=== PATIENT | male | born 2000 | race Two or more races ===

== ENCOUNTER 2024-03-01 07:45 | Observation (INO) | payer OTHER, SELFPAY ==
[2024-03-01] VITALS (19 sets, daily range): BP systolic 98–141; BP diastolic 57–97; PULSE 52–79; TEMP 36.2–36.9; O2SAT 95–99; BMI 33.2; BMI 76.5
--- NOTE | 2024-03-01 | CONS_ITS ---
CONSULTATION ? CONSULTATION DATE: ??03/01/2024 ? REASON FOR CONSULTATION:? Abdominal pain, cholelithiasis. ? HISTORY OF PRESENT ILLNESS:? Patient is a 24-year-old male with a history of bipolar disorder, which she is no longer taking medications, who presented to the emergency room with upper abdominal pain, nausea and vomiting that began about 4:30 this morning.? He does have a one year history of intermittent symptoms, usually very short lived, but occasionally.? The longest episode had been several hours, sometimes triggered by acidic/spicy foods or fatty foods.? He did have several episodes of nausea and vomiting, did try to take Tums with no relief.? By the time he presented to the emergency room and was being worked up, his pain was improving.? He was also given pain medications.? Workup in the emergency room revealed normal laboratory evaluation.? CT scan revealed a stone in the neck of the gallbladder without distention of the gallbladder.? There was some enhancement of the wall of the gallbladder.? No pericholecystic fluid or inflammatory changes.? No other abnormalities noted.? It was read as possible early cholecystitis; therefore, he was admitted for further workup and antibiotics.? He did have an ultrasound done of the right upper quadrant which revealed the same stone.? No gallbladder wall thickening.? No positive Garduno?s sign with ultrasound.? No evidence of free fluid or distention of the gallbladder.? Normal size common bile duct.? Patient has been pain free since his admission and was taking some full liquid diet without problems.? He has had no further nausea, vomiting.? Patient denies any previous abdominal surgery.? No history of jaundice or pancreatitis.? There is no family history of GI malignancy or inflammatory bowel disease.? He denies aspirin, nonsteroidal anti- inflammatory drug use.? Does report occasional alcohol use.? He does vape nicotine containing products and does use some cannabis products.? Patient has no other medical problems, is on no prescription medications.? Has no allergies to any drugs or [id number]-cvh-reipvad medications.? ? SOCIAL HISTORY:? As noted in the HPI.? He does work at [employer].? ? FAMILY HISTORY:? Noncontributory. ? REVIEW OF SYSTEMS:? Ten system review of systems is negative for recent weight loss or weight gain.? Denies increased fatigue or light-headedness.? Has had no earache or tinnitus.? No sinus congestion.? No sore throat or hoarseness.? No chest pain, palpitations or syncope.? No chronic cough, shortness of breath or hemoptysis.? He has had the abdominal pain and the nausea, vomiting, some loose stools.? No melena, hematochezia or bright red blood per rectum.? No dysuria, frequency, urgency or hematuria.? No headaches, seizures or tremors.? No easy bruising or bleeding. ?No heat or cold intolerance.? No polydipsia, polyphagia or polyuria. ? PHYSICAL EXAM:? VITAL SIGNS:? Patient is afebrile.? Blood pressure is 118/83.? Heart rate is 70 and regular.? Respiratory rate is 18.? O2 saturation is 98% on room air.? GENERAL:? In general, he is a well developed, well nourished male, in no acute distress. HEENT:? Normocephalic, atraumatic.? Sclerae anicteric.? Conjunctiva not injected.? Oral mucosa is moist without lesions. NECK:? Supple.? There is no adenopathy, thyromegaly or JVD. LUNGS:? Clear bilaterally.? CARDIAC EXAM:? Regular rhythm and rate without appreciable murmurs, rubs or gallops. ABDOMEN:? Obese, soft.? There are normal bowel sounds.? Non-tender, non- distended.? There are no masses, hepatosplenomegaly or hernias.? No right upper quadrant or epigastric tenderness to deep palpation.? No CVA tenderness. SKIN:? Warm and dry without lesions, rashes or ulcers. NEURO EXAM:? Non-focal.? Non-lateralizing.? Patient is awake, alert, oriented with appropriate affect. ? IMAGING:? CT scan and ultrasound images were personally reviewed. ? ASSESSMENT:? A 24-year-old male with one year history of intermittent biliary colic, now with a likely episode of biliary colic that has resolved.? There is no evidence of cholecystitis.? His pain has resolved.? He has normal vital signs.? No evidence of abnormal laboratory evaluation.? No further nausea, vomiting. ? RECOMMENDATIONS:? Overall, I would advance him to a low fat diet.? He can be discharged and follow up as an outpatient to be set up for elective cholecystectomy.? I would recommend he continue the low fat diet to minimize episodes.? He is to call sooner with any problems or questions.? ? CC:? Dr. Rigoberto CHRIS
--- NOTE | 2024-03-01 08:04 | CT_ITS ---
[address] [address] Patient Name: LIANE MAHONEY MRN: [id number] date: 2000 Sex: M Assigned Patient Location: ER Current Patient Location: Accession/Order Number: [id number] Exam Date: 03/01/2024 08:40 Report Date: 03/01/2024 09:24 At the request of: TOMMY DOSS Procedure: CT abdomen pelvis w con EXAMINATION: CT abdomen pelvis w con HISTORY: RUQ Pain , nausea, vomiting, diarrhea COMPARISON: No relevant comparison available. TECHNIQUE: Axial, Coronal, and Sagittal images were obtained without and/or with IV contrast as indicated by examination type. Dose reduction techniques were achieved by using automated exposure control and/or adjustment of mA and/or kV according to patient size and/or use of iterative reconstruction technique. FINDINGS: LUNG BASES: No visible pulmonary or pleural disease. LIVER: No enlargement, atrophy, suspicious density, or significant focal lesion. BILIARY: 1.5 cm stone within gallbladder neck. Gallbladder wall thickness is at upper limits of normal, 3 mm. PANCREAS: No lesion, fluid collection, or abnormal duct dilatation. SPLEEN: No enlargement or focal lesion. ADRENALS: No mass or enlargement. KIDNEYS: No mass, obstruction, or calcification. BOWEL/MESENTERY: No visible mass, obstruction, or bowel wall thickening. Normal appendix. AORTA/VASCULAR: No aneurysm or dissection. RETROPERITONEUM: No mass or adenopathy. LYMPH NODES: No adenopathy. URINARY BLADDER: No visible focal wall thickening, lesion, or calculus. PELVIC ORGANS: No visible mass. Pelvic organs appropriate for patient age. ABDOMINAL WALL: No mass or hernia. BONES: No bony lesion or fracture. OTHER: Negative. CT/CT abdomen pelvis w con IMPRESSION: 1. Cholelithiasis and likely early / developing acute cholecystitis. Consider ultrasound evaluation. Electronically authenticated by: ROBINSON COLLINS Date: 03/01/2024 09:24
--- NOTE | 2024-03-01 08:18 | ECG_ITS ---
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
--- NOTE | 2024-03-01 08:19 | ED.ABDPAIN1 ---
HPI - Abdominal Pain General Chief Complaint: Abdominal Pain Stated Complaint: ABDOMINAL PAIN, NAUSEA, VOMITING Time Seen by Provider: 03/01/24 07:50 Source: patient Mode of arrival: walk-in History of Present Illness HPI narrative: 24-year-old male to the emergency department with chief complaint of upper abdominal pain. Patient reports an episode that began at 4:30 AM. It was a sharp cramping-like pain. He reports that lying in the position is the only thing it helps. It has been consistent since that time. Is been associate with nausea and vomiting. He reports that he had a diarrhea-like bowel movement this morning as well. No blood in the stool. He had a similar episode approximately 1 month ago. It resolved spontaneously after a few hours and he felt much improved. Related Data Home Medications ?Medication ?Instructions ?Recorded ?Confirmed No Known Home Medications 03/01/24 03/01/24 Allergies Allergy/AdvReac Type Severity Reaction Status Date / Time No Known Drug Allergies Allergy Verified 03/01/24 07:52 Review of Systems ROS Status of ROS 10 or more systems reviewed and unremarkable except as noted in history and below Exam Narrative Exam Narrative: VITALS: I have reviewed the triage vital signs. GENERAL: Well developed, well appearing adult in mild discomfort, holding upper abdomen. Girlfriend at the bedside. NEURO: Alert and oriented. Moves all extremities. Face is symmetric and expressive. EYES: PERRL. No scleral icterus or conjunctival injection. No discharge. HENT: Normocephalic, atraumatic. Hearing is grossly intact. Nares grossly patent and without discharge. Mucous membranes moist. NECK: No JVD. Patient moves neck without restriction. CARDIO: Rhythm regular. Normal rate. No murmur, rub, or gallop. Pulses equal bilaterally in the upper and lower extremity. No lower extremity edema. PULM: Lungs clear to auscultation in all mazariegos. No wheezes, rales, or rhonchi. No conversational dyspnea. No splinting, stridor, or accessory muscle use. GI/: Abdomen is soft. Right upper quadrant tenderness. No rebound or guarding. Normoactive bowel sounds. EXTREMITIES: Symmetric muscle bulk. No joint swelling. No clubbing, cyanosis, or deformity. SKIN: Warm and dry. Normal turgor. No rash or lesions appreciated. PSYCH: Mood, affect, and interaction is appropriate to the setting. Constitutional Vital Signs, click to edit/add: Last Vital Signs Temp 98.0 F 03/01/24 07:48 Pulse 78 03/01/24 07:48 Resp 18 03/01/24 07:48 BP 141/97 H 03/01/24 07:48 Pulse Ox 95 03/01/24 07:48 O2 Del Method Room Air 03/01/24 07:48 Course Vital Signs Vital signs: Vital Signs Temperature 98.0 F 03/01/24 07:48 Pulse Rate 78 03/01/24 07:48 Respiratory Rate 18 03/01/24 07:48 Blood Pressure 141/97 H 03/01/24 07:48 Pulse Oximetry 95 03/01/24 07:48 Oxygen Delivery Method Room Air 03/01/24 07:48 Temperature 98.0 F 03/01/24 07:48 Pulse Rate 78 03/01/24 07:48 Respiratory Rate 18 03/01/24 07:48 Blood Pressure 141/97 H 03/01/24 07:48 Pulse Oximetry 95 03/01/24 07:48 Oxygen Delivery Method Room Air 03/01/24 07:48 MDM - Abdominal Pain MDM Narrative Medical decision making narrative: 24-year-old male to the emergency department with chief complaint of upper abdominal pain. Vital stable, the patient is afebrile. He does have some mild tenderness about the right upper quadrant. CT scan is ordered for evaluation of the biliary system. Lab work ordered. Bentyl, Toradol, Zofran for symptom control. Patient agrees with this plan. Lab work reviewed and noted. No major abnormalities. Specifically has normal LFTs and lipase. No leukocytosis. He is afebrile. CT scan shows possible early acute cholecystitis. He does have cholelithiasis. Case was discussed with the on-call surgeon Dr. Luu. He agrees to consultation for the patient in the hospital. Asked to cover with antibiotics. Zosyn was ordered. Discussed the case with Dr. Franklin who agrees admit the patient to his service. Patient was updated. He is made NPO. Medical Records Attestation: I reviewed the patient's medical records. Lab Data Attestation: I reviewed the patient's lab results. Labs: Lab Results 03/01/24 Range/Units 08:22 WBC 8.8 (4.0-11.0) 10^3/uL RBC 4.71 (4.70-6.10) 10^6/uL Hgb 15.1 (14.0-18.0) g/dL Hct 42.3 (42.0-54.0) % MCV 89.8 (80.0-94.0) fL MCH 32.1 (25.9-34.0) pg MCHC 35.7 H (29.9-35.2) g/dL RDW 12.6 (11.0-15.0) % Plt Count 260 (150-450) 10^3/uL MPV 9.1 L (9.5-13.5) fL Neut % (Auto) 66.4 (43.0-75.0) % Lymph % (Auto) 25.1 (20.5-60.0) % [place] % (Auto) 6.9 (1.7-12.0) % Eos % (Auto) 1.0 (0.9-7.0) % Baso % (Auto) 0.3 (0.2-2.0) % Neut # (Auto) 5.9 (1.4-6.5) 10^3/uL Lymph # (Auto) 2.2 (1.2-3.8) 10^3/uL [place] # (Auto) 0.6 (0.3-0.8) 10^3/uL Eos # (Auto) 0.1 (0.0-0.7) 10^3/uL Baso # (Auto) 0.0 (0.0-0.1) 10^3/uL Abs Immat Gran (auto) 0.03 (0.00-0.03) 10^3/uL Imm/Tot Granulo (auto) 0.3 (0.0-0.5) % Sodium 139 (136-145) mmol/L Potassium 3.9 (3.5-5.1) mmol/L Chloride 102 (98-107) mmol/L Carbon Dioxide 29.4 (21.0-32.0) mmol/L Anion Gap 11.5 BUN 10.0 (7.0-18.0) mg/dL Creatinine 0.84 (0.70-1.30) mg/dL Est GFR ( Amer) >60 (>=60) Est GFR (Non-Af Amer) >60 (>=60) BUN/Creatinine Ratio 11.9 Glucose 107 H (74-106) mg/dL Calcium 8.4 L (8.5-10.1) mg/dL Total Bilirubin 0.6 (0.2-1.0) mg/dL AST 22 (15-37) U/L ALT 53 (16-63) U/L Alkaline Phosphatase 92 (46-116) U/L Troponin I High Sens <4.0 L (4.0-76.1) pg/mL Total Protein 6.9 (6.4-8.2) g/dL Albumin 3.9 (3.4-5.0) g/dL Globulin 3.0 g/dL Albumin/Globulin Ratio 1.3 Lipase 36.0 (16.0-77.0) U/L Imaging Data CT scan - abdomen: Radiologist's impression: ITS Impressions Abdomen/Pelvis CT 03/01/24 08:04 IMPRESSION: 1. Cholelithiasis and likely early / developing acute cholecystitis. Consider ultrasound evaluation. Electronically authenticated by: ROBINSON COLLINS Date: 03/01/2024 09:24 ECG Data Attestation: I personally reviewed and interpreted this ECG as follows: (Sinus rhythm at a rate of 70. No ST elevation. Normal QTc.) Discharge Plan Discharge Stand Alone Forms: Portal Instructions Chief Complaint: Abdominal Pain Clinical Impression: Acute cholecystitis, Cholelithiasis Patient Disposition: Admitted as Observation Time of Disposition Decision: 09:46 Condition: Good Prescriptions / Home Meds: No Action No Known Home Medications Print Language: Yoruba Referrals: Physician,Non-Staff, MD [Primary Care Provider] - 1 week
[2024-03-01] MEDS: DICYCLOMINE HCL 20 MG/2 ML VIAL IM (08:22)
[2024-03-01] MEDS: ONDANSETRON PF 4 MG/2 ML VIAL IV (08:22)
[2024-03-01] MEDS: 0.9 % SODIUM CHLORIDE 1,000 ML 999 ML IV (08:23)
[2024-03-01] MEDS: KETOROLAC TROMETHAMINE 30 MG/ML VIAL 15 MG IVP (08:23)
[2024-03-01 08:35] LABS: Basophils Percent Auto 0.3 % (0.2-2.0); Eosinophils Absolute Auto 0.1 10^3/uL (0.0-0.7); Hematocrit 42.3 % (42.0-54.0); Hemoglobin 15.1 g/dL (14.0-18.0); Immature Granulocytes Abs Auto 0.03 10^3/uL (0.00-0.03); Immature Granulocytes Pct Auto 0.3 % (0.0-0.5); Lymphocytes Absolute Auto 2.2 10^3/uL (1.2-3.8); Lymphocytes Percent Auto 25.1 % (20.5-60.0); Mean Corpuscular HGB Conc 35.7 g/dL (29.9-35.2); Mean Corpuscular Hemoglobin 32.1 pg (25.9-34.0); Mean Corpuscular Volume 89.8 fL (80.0-94.0); Mean Platelet Volume 9.1 fL (9.5-13.5); Monocytes Absolute Auto 0.6 10^3/uL (0.3-0.8); Monocytes Percent Auto 6.9 % (1.7-12.0); Neutrophils Absolute Auto 5.9 10^3/uL (1.4-6.5); Neutrophils Percent Auto 66.4 % (43.0-75.0); Platelet Count 260 10^3/uL (150-450); Red Blood Count 4.71 10^6/uL (4.70-6.10); Red Cell Distribution Width 12.6 % (11.0-15.0); White Blood Count 8.8 10^3/uL (4.0-11.0)
[2024-03-01 08:51] LABS: Alanine Aminotransferase 53 U/L (16-63); Albumin Globulin Ratio 1.3; Albumin Level 3.9 g/dL (3.4-5.0); Alkaline Phosphatase 92 U/L (46-116); Anion Gap 11.5; Aspartate Amino Transferase 22 U/L (15-37); BUN Creatinine Ratio 11.9; Bilirubin Total 0.6 mg/dL (0.2-1.0); Calcium 8.4 mg/dL (8.5-10.1); Carbon Dioxide 29.4 mmol/L (21.0-32.0); Chloride 102 mmol/L (98-107); Estimated GFR (African America >60 (>=60); Estimated GFR (Non-African Ame >60 (>=60); Glucose 107 mg/dL (74-106); Potassium 3.9 mmol/L (3.5-5.1); Sodium 139 mmol/L (136-145); Total Protein 6.9 g/dL (6.4-8.2); Troponin I High Sensitivity <4.0 pg/mL (4.0-76.1)
--- NOTE | 2024-03-01 09:42 | US_ITS ---
The [address] [address] Patient Name: LIANE MAHNOEY MRN: [id number] date: 2000 Sex: M Assigned Patient Location: Current Patient Location: Accession/Order Number: [id number] Exam Date: 03/01/2024 11:15 Report Date: 03/01/2024 11:54 At the request of: SHAIKH MARLENY Procedure: US right upper quadrant EXAMINATION: US right upper quadrant HISTORY: cholecystitis COMPARISON: No relevant comparison available. TECHNIQUE: Transabdominal evaluation of the right upper quadrant. FINDINGS: LIVER: Normal size and echotexture. Color Doppler demonstrates patent hepatic veins. PORTAL VEIN: Duplex Doppler demonstrates normal hepatopetal flow pattern with flow velocity averaging 27 cm/s. GALLBLADDER: 12 mm stone within the neck of gallbladder. Wall thickness is upper limits of normal, 3 mm. No free fluid. Negative sonographic Garduno's sign. BILIARY: No abnormal duct dilation or stones. Common bile duct diameter is within normal limits. PANCREAS: No visible mass, abnormal atrophy, or duct dilation. KIDNEY: No hydronephrosis. No visible mass or stones. Size: 11.0 x 5.1 x 5.8 cm US/US right upper quadrant IMPRESSION: 1. Cholelithiasis. There is a 12 mm stone within the neck of the gallbladder, unchanged compared to CT study from earlier today suggesting this may be impacted. However, no convincing acute cholecystitis. Electronically authenticated by: ROBINSON COLLINS Date: 03/01/2024 11:54
[2024-03-01] MEDS: PIPERACILLIN SODIUM/TAZOBACTAM 4.5 GM in 0.9 % SODIUM CHLORIDE 50 ML IV (09:48)
--- NOTE | 2024-03-01 10:33 | P.HP_ITS ---
HPI H&P: HPI History of Present Illness Chief complaint: ABDOMINAL PAIN, NAUSEA, ACUTE CHOLECYSTITIS Narrative: 24-year-old male with past medical history of bipolar disorder presents with acute onset epigastric and right upper quadrant abdominal pain that is persistent, sharp associated with nausea and few episodes of vomiting. He came to ED when his pain continued to get progressively worse with no relief and initial workup shows possible acute early cholecystitis for which he was admitted for observation and started on IV fluids, IV antibiotics. General surgery consulted further recommendation. In the meanwhile, I ordered an ultrasound of right upper quadrant for better visualization of hepatobiliary anatomy. Patient reports that over the past 1 year he would experience intermittent right upper quadrant abdominal pain usually precipitated by eating fatty foods but his pain would subside after a few hours and that he did not have to seek medical attention for that. He was also without health insurance until 1 month ago and could not see anyone for an evaluation Opioid HPI Opioid Management Most Recent Pain and Opioid Data: Last SEP Pain Assessment 03/01/24 08:23 Last ORT Total Score 5 03/01/24 10:22 Last ORT Risk Category Moderate Risk 03/01/24 10:22 Review of Systems ROS Status of ROS 10 or more systems reviewed and unremark able except as noted in history and below PFSH PFS Medical History (Updated 03/01/24 @ 10:36 by Shaikh Rigoberto MD) Bipolar disorder in full remission ?F31.70 - Bipolar disorder, currently in remission, most recent episode unspecified (ICD-10) Social History (Updated 03/01/24 @ 10:36 by Shaikh Rigoberto MD) Within the past year, how often did you have a drink containing alcohol: never Within the past year, how many standard drinks containing alcohol did you have on a typical day: 1 or 2 Within the past year, how often did you have six or more drinks on one occasion: never Total score: 0 Score interpretation: A score less than 4 is consistent with normal alcohol consumption. Do you use any of these nicotine containing products: vaping products Non-prescribed substance use: cannabis (any form) Highest level of school completed/degree received: high school graduate Meds Home Medications and Allergies Home Medications ?Medication ?Instructions ?Recorded ?Confirmed ?Type No Known Home Medications 03/01/24 03/01/24 History Allergies Allergy/AdvReac Type Severity Reaction Status Date / Time No Known Drug Allergies Allergy Verified 03/01/24 07:52 Exam Constitutional Vital Signs, click to edit/add: Last Vital Signs Temp 98.5 F 03/01/24 10:28 Pulse 56 L 03/01/24 10:28 Resp 16 03/01/24 10:28 BP 120/73 03/01/24 10:28 Pulse Ox 97 03/01/24 10:28 O2 Del Method Room Air 03/01/24 10:28 Documenting provider has reviewed patient's vital signs: yes Common normals: no apparent distress and oriented x3 General appearance: cooperative HENID Common normals: normocephalic and head/scalp atraumatic Head and scalp: normocephalic and atraumatic Eye Common normals: conjunctivae normal and no scleral icterus Conjunctiva: conjunctiva(e) normal Respiratory Common normals: normal respiratory effort and clear to auscultation bilaterally Effort & inspection: able to speak in complete sentences Auscultation: clear to auscultation bilaterally Cardio Common normals: regular rate, S1 normal heart sound and S2 normal heart sound Rate: regular rate Heart sounds: S1 normal and S2 normal GI Common normals: Normal to inspection, nondistended, normoactive bowel sounds present, soft to palpation, non-tender and no hepatosplenomegaly Palpation: soft and no hepatosplenomegaly Extremity Common normals: no clubbing, cyanosis or edema Neuro Common normals: oriented x3, moves all extremities and no focal motor deficits Psych Common normals: mental status grossly normal, denies hallucinations, denies homicidal ideation and denies suicidal ideation Results Labs Labs: Short CBC 03/01/24 Range/Units 08:22 WBC 8.8 (4.0-11.0) 10^3/uL Hgb 15.1 (14.0-18.0) g/dL Hct 42.3 (42.0-54.0) % Plt Count 260 (150-450) 10^3/uL BMP 03/01/24 08:22 Sodium 139 Potassium 3.9 Chloride 102 Carbon Dioxide 29.4 BUN 10.0 Creatinine 0.84 Glucose 107 H Calcium 8.4 L Liver Function 03/01/24 Range/Units 08:22 Total Bilirubin 0.6 (0.2-1.0) mg/dL AST 22 (15-37) U/L ALT 53 (16-63) U/L Alkaline Phosphatase 92 (46-116) U/L Albumin 3.9 (3.4-5.0) g/dL Assessment and Plan Assessment and Plan (1) Acute cholecystitis: Assessment and Plan: Patient presents with epigastric and right upper quadrant abdominal pain with nausea, vomiting. CT abdomen pelvis showed early cholecystitis. Ultrasound of right upper quadrant ordered. General surgery consult pending. Continue with IV Zosyn. Continue with IV fluids, antiemetics. Combination of oxycodone and IV morphine for pain as needed (2) Bipolar disorder in full remission: Assessment and Plan: Previously was on Abilify and trazodone. Patient has not been using his medication for over a month now. His mood is stable and does not feel that he needs anything currently. Will defer to outpatient. Qualifiers: Most recent bipolar episode type: mixed Qualified Code(s): F31.78 - Bipolar disorder, in full remission, most recent episode mixed
[2024-03-01] MEDS: LACTATED RINGER'S SOLUTION 1,000 ML 125 ML IV ×2 (10:50→21:49)
[2024-03-01] MEDS: ENOXAPARIN SODIUM 40 MG/0.4 ML SYRINGE SUBQ (10:50)
[2024-03-01] MEDS: PIPERACILLIN SODIUM/TAZOBACTAM 3.375 GM in 0.9 % SODIUM CHLORIDE 50 ML IV (17:34)
--- NOTE | 2024-03-01 18:00 | PM.GSCN ---
History of Present Illness Consult details Consult date: 03/01/24 Requesting physician: Shaikh Rigoberto Narrative: patient seen/examined/chart and ct/US images reviewed/consult dictated; 24 yo male with 1 year h/o likely biliary colic, now with more prolonged episode that has resolved; normal labs and vitals, tolerating full liquid diet, imaging with no evidence of gallbladder distension or inflammation; advance to low fat diet; can discharge to home, with f/u with me to schedule elective cholecystectomy; should stay on low fat diet; no need for further antibiotics. [facility] Medical History (Updated 03/01/24 @ 10:36 by Shaikh Rigoberto MD) Bipolar disorder in full remission ?F31.70 - Bipolar disorder, currently in remission, most recent episode unspecified (ICD-10) Social History (Updated 03/01/24 @ 10:36 by Shaikh Rigoberto MD) Within the past year, how often did you have a drink containing alcohol: never Within the past year, how many standard drinks containing alcohol did you have on a typical day: 1 or 2 Within the past year, how often did you have six or more drinks on one occasion: never Total score: 0 Score interpretation: A score less than 4 is consistent with normal alcohol consumption. Do you use any of these nicotine containing products: vaping products Non-prescribed substance use: cannabis (any form) Highest level of school completed/degree received: high school graduate Meds Home Medications and Allergies Home Medications ?Medication ?Instructions ?Recorded ?Confirmed ?Type No Known Home Medications 03/01/24 03/01/24 History Allergies Allergy/AdvReac Type Severity Reaction Status Date / Time No Known Drug Allergies Allergy Verified 03/01/24 07:52 Exam Constitutional Vital Signs, click to edit/add: Last Vital Signs Temp 98.4 F 03/01/24 15:45 Pulse 70 03/01/24 15:45 Resp 14 03/01/24 15:45 BP 118/83 03/01/24 15:45 Pulse Ox 98 03/01/24 15:45 O2 Del Method Room Air 03/01/24 15:45 Results Labs Labs: Abnormal lab results 03/01/24 Range/Units 08:22 MCHC 35.7 H (29.9-35.2) g/dL MPV 9.1 L (9.5-13.5) fL Glucose 107 H (74-106) mg/dL Calcium 8.4 L (8.5-10.1) mg/dL Troponin I High Sens <4.0 L (4.0-76.1) pg/mL Diabetes panel 03/01/24 Range/Units 08:22 Sodium 139 (136-145) mmol/L Potassium 3.9 (3.5-5.1) mmol/L Chloride 102 (98-107) mmol/L Carbon Dioxide 29.4 (21.0-32.0) mmol/L BUN 10.0 (7.0-18.0) mg/dL Creatinine 0.84 (0.70-1.30) mg/dL Glucose 107 H (74-106) mg/dL Calcium 8.4 L (8.5-10.1) mg/dL AST 22 (15-37) U/L ALT 53 (16-63) U/L Alkaline Phosphatase 92 (46-116) U/L Total Protein 6.9 (6.4-8.2) g/dL Albumin 3.9 (3.4-5.0) g/dL Calcium panel 03/01/24 Range/Units 08:22 Calcium 8.4 L (8.5-10.1) mg/dL Albumin 3.9 (3.4-5.0) g/dL Pituitary panel 03/01/24 Range/Units 08:22 Sodium 139 (136-145) mmol/L Potassium 3.9 (3.5-5.1) mmol/L Chloride 102 (98-107) mmol/L Carbon Dioxide 29.4 (21.0-32.0) mmol/L BUN 10.0 (7.0-18.0) mg/dL Creatinine 0.84 (0.70-1.30) mg/dL Glucose 107 H (74-106) mg/dL Calcium 8.4 L (8.5-10.1) mg/dL Adrenal panel 03/01/24 Range/Units 08:22 Sodium 139 (136-145) mmol/L Potassium 3.9 (3.5-5.1) mmol/L Chloride 102 (98-107) mmol/L Carbon Dioxide 29.4 (21.0-32.0) mmol/L BUN 10.0 (7.0-18.0) mg/dL Creatinine 0.84 (0.70-1.30) mg/dL Glucose 107 H (74-106) mg/dL Calcium 8.4 L (8.5-10.1) mg/dL Total Bilirubin 0.6 (0.2-1.0) mg/dL AST 22 (15-37) U/L ALT 53 (16-63) U/L Alkaline Phosphatase 92 (46-116) U/L Total Protein 6.9 (6.4-8.2) g/dL Albumin 3.9 (3.4-5.0) g/dL All other labs normal. Assessment and Plan Assessment and Plan (1) Acute cholecystitis: (2) Bipolar disorder in full remission: Qualifiers: Most recent bipolar episode type: mixed Qualified Code(s): F31.78 - Bipolar disorder, in full remission, most recent episode mixed
[2024-03-02] MEDS: PIPERACILLIN SODIUM/TAZOBACTAM 3.375 GM in 0.9 % SODIUM CHLORIDE 50 ML IV (01:54)
[2024-03-02 04:51] VITALS: O2SAT 97
[2024-03-02 05:01] VITALS: BP 122/76; PULSE 55; TEMP 36.4; O2SAT 97
[2024-03-02 06:36] LABS: Basophils Percent Auto 0.3 % (0.2-2.0); Eosinophils Absolute Auto 0.1 10^3/uL (0.0-0.7); Eosinophils Percent Auto 1.7 % (0.9-7.0); Hematocrit 42.9 % (42.0-54.0); Hemoglobin 15.3 g/dL (14.0-18.0); Immature Granulocytes Abs Auto 0.02 10^3/uL (0.00-0.03); Immature Granulocytes Pct Auto 0.3 % (0.0-0.5); Lymphocytes Absolute Auto 2.8 10^3/uL (1.2-3.8); Lymphocytes Percent Auto 39.3 % (20.5-60.0); Mean Corpuscular HGB Conc 35.7 g/dL (29.9-35.2); Mean Corpuscular Volume 89.7 fL (80.0-94.0); Mean Platelet Volume 9.5 fL (9.5-13.5); Monocytes Absolute Auto 0.6 10^3/uL (0.3-0.8); Monocytes Percent Auto 7.9 % (1.7-12.0); Neutrophils Absolute Auto 3.6 10^3/uL (1.4-6.5); Neutrophils Percent Auto 50.5 % (43.0-75.0); Platelet Count 249 10^3/uL (150-450); Red Blood Count 4.78 10^6/uL (4.70-6.10); Red Cell Distribution Width 12.6 % (11.0-15.0); White Blood Count 7.1 10^3/uL (4.0-11.0)
[2024-03-02 07:01] LABS: Alanine Aminotransferase 52 U/L (16-63); Albumin Globulin Ratio 1.3; Alkaline Phosphatase 80 U/L (46-116); Anion Gap 15.7; Aspartate Amino Transferase 27 U/L (15-37); BUN Creatinine Ratio 6.3; Bilirubin Total 1.1 mg/dL (0.2-1.0); Calcium 8.8 mg/dL (8.5-10.1); Carbon Dioxide 23.9 mmol/L (21.0-32.0); Chloride 104 mmol/L (98-107); Estimated GFR (African America >60 (>=60); Estimated GFR (Non-African Ame >60 (>=60); Globulin 3.1 g/dL; Glucose 99 mg/dL (74-106); Potassium 3.6 mmol/L (3.5-5.1); Sodium 140 mmol/L (136-145); Total Protein 7.1 g/dL (6.4-8.2)
[2024-03-02 08:03] VITALS: BP 124/82; PULSE 64; TEMP 36.7; O2SAT 98
[2024-03-02] MEDS: ACETAMINOPHEN 325 MG TABLET 650 MG PO (09:05)
[2024-03-02] MEDS: ENOXAPARIN SODIUM 40 MG/0.4 ML SYRINGE SUBQ (09:06)
--- NOTE | 2024-03-02 10:09 | PM.DS1 ---
DS: Providers Provider Date of admission: 03/01/24 10:10 Primary care physician: Non-Staff Physician, Admitting clinician: Shaikh Rigoberto Attending physician on admission: Shaikh Rigoberto Consults: 03/01/24 09:42 Consult to General Surgeon Routine Consulting Provider: Bryant Luu Reason for consultation: cholecystitis Attending physician on discharge: Shaikh Rigoberto Discharging clinician: Shaikh Rigoberto Anticipated date of discharge: 03/02/24 DS: Diagnosis Discharge Diagnosis (1) Acute cholecystitis: Assessment and plan: Cholecystitis ruled out by abdominal ultrasound. No need to be on antibiotics. (2) Cholelithiasis: Assessment and plan: Cholecystitis ruled out by abdominal ultrasound. No need to be on antibiotics. Pain is well-controlled. Tolerating oral diet. Patient had biliary colic due to cholelithiasis and will need outpatient follow-up with general surgery for aron Qualifiers: Cholelithiasis location: bile duct Cholecystitis presence: without cholecystitis Biliary obstruction: without biliary obstruction Qualified Code(s): K80.50 - Calculus of bile duct without cholangitis or cholecystitis without obstruction (3) Bipolar disorder in full remission: Assessment and plan: Not using any medications currently. Will need outpatient follow-up with PCP Qualifiers: Most recent bipolar episode type: mixed Qualified Code(s): F31.78 - Bipolar disorder, in full remission, most recent episode mixed DS: Summary Hospital Course Hospital Course: 24-year-old male admitted for nausea, vomiting, epigastric and right upper quadrant abdominal pain. Initial workup was concerning for biliary colic/cholelithiasis with possible early cholecystitis. He was started on IV fluids, IV antibiotics for possible acute cholecystitis. Ultrasound of liver and gallbladder rule out acute cholecystitis. Patient was seen by general surgery and was recommended to have outpatient laparoscopic cholecystectomy. Patient is doing well. He has minimal pain. He is tolerating oral diet. Will discharge on oral Zofran as needed. Follow-up with general surgery as outpatient in 1 to 2 weeks Status at Discharge Functional status at discharge: independent ambulation Overall status at discharge: patient is back to baseline Time Spent with Patient Time attestation: Total time spent providing and/or coordinating discharge services: Exam Constitutional Vital Signs, click to edit/add: Last Vital Signs Temp 98.0 F 03/02/24 08:03 Pulse 64 03/02/24 08:03 Resp 16 03/02/24 08:04 BP 124/82 03/02/24 08:03 Pulse Ox 98 03/02/24 08:03 O2 Del Method Room Air 03/02/24 08:03 Documenting provider has reviewed patient's vital signs: yes Common normals: no apparent distress and oriented x3 General appearance: cooperative Respiratory Common normals: normal respiratory effort and clear to auscultation bilaterally Effort & inspection: able to speak in complete sentences Auscultation: clear to auscultation bilaterally Cardio Common normals: regular rate, S1 normal heart sound and S2 normal heart sound Rate: regular rate Heart sounds: S1 normal and S2 normal GI Common normals: Normal to inspection, nondistended, normoactive bowel sounds present, soft to palpation, non-tender and no hepatosplenomegaly Palpation: soft and no hepatosplenomegaly Extremity Common normals: no clubbing, cyanosis or edema Neuro Common normals: oriented x3, moves all extremities and no focal motor deficits Psych Common normals: mental status grossly normal, denies hallucinations, denies homicidal ideation and denies suicidal ideation DS: Data Data Completed and Pending Labs on day of discharge: Labs from last 24 hours 03/02/24 05:21 WBC 7.1 RBC 4.78 Hgb 15.3 Hct 42.9 MCV 89.7 MCH 32.0 MCHC 35.7 H RDW 12.6 Plt Count 249 MPV 9.5 Neut % (Auto) 50.5 Lymph % (Auto) 39.3 [place] % (Auto) 7.9 Eos % (Auto) 1.7 Baso % (Auto) 0.3 Neut # (Auto) 3.6 Lymph # (Auto) 2.8 [place] # (Auto) 0.6 Eos # (Auto) 0.1 Baso # (Auto) 0.0 Abs Immat Gran (auto) 0.02 Imm/Tot Granulo (auto) 0.3 Sodium 140 Potassium 3.6 Chloride 104 Carbon Dioxide 23.9 Anion Gap 15.7 BUN 5.0 L Creatinine 0.79 Est GFR ( Amer) >60 Est GFR (Non-Af Amer) >60 BUN/Creatinine Ratio 6.3 Glucose 99 Calcium 8.8 Total Bilirubin 1.1 H AST 27 ALT 52 Alkaline Phosphatase 80 Total Protein 7.1 Albumin 4.0 Globulin 3.1 Albumin/Globulin Ratio 1.3 Discharge Plan Discharge Disposition: Home, Self-Care Condition: Good Discharge Medications: New ondansetron 4 mg tablet,disintegrating 4 mg PO Q8H PRN (Reason: nausea and vomiting) Qty: 10 0RF omeprazole 40 mg capsule,delayed release(DR/EC) 40 mg PO DAILY Qty: 30 0RF Activity: increase activity as tolerated Diet: low fat, low cholesterol Print Language: Divehi Forms: Portal Instructions Follow Up Appointments: @ 4pm with Jenifer Chino NP [address] [facility] [phone] Dr. Bryant Luu (general surgeon) office will call the patient to set up a follow-up appt. [phone]
--- NOTE | 2024-03-02 11:03 | CM.NOTE ---
Rounds made with Dr. Franklin, pt will discharge to home today. Pt will discharge home with self care. Pt has f/u scheduled as new pt with Maria T Griffin NP. Dr. Luu's office will call him to set up f/u appt. Pt verbalizes understanding and denies other needs at this time.
--- NOTE | 2024-03-03 15:17 | CM.DCFOLLOWU ---
1st attempt 03/03/24
== END 2024-03-02 11:00 | disposition home or self-care (01) ==
LOC: ER 09:55 → MS 10:14
PROVIDERS: Admitting Provider Internal Medicine; Emergency Provider Student in an Organized Health Care Education/Training Program; Visit Provider Internal Medicine
DX: K80.50 Calculus of bile duct without cholangitis or cholecystitis without obstruction (principal); F31.78 Bipolar disorder, in full remission, most recent episode mixed; F17.290 Nicotine dependence, other tobacco product, uncomplicated
CPT/HCPCS: 36415; 74177; 76705; 80053; 83690; 84484; 85025; 93005; 94761; 96361; 96365; 96366; 96372; 96375; 99285; G0378; J0500; J1650; J1885; J2405; J2543; Q9967

== ENCOUNTER 2024-03-15 10:58 | Outpatient (OUT) | payer OTHER, SELFPAY ==
--- OUTSIDE RECORDS SUMMARY | 2024-03-15 11:14 | XMS_ITS | CCD ---
Author Organization [facility] Care Team Providers Care Tour Coordinator Name Role Phone NONE, XXXX Primary Care Physician Unavailab Bryant Reid Attending Unavailable Bryant SUAREZ Attending Unavailable Allergies Allergy Classification Reported Allergen(s) Allergy Type Date of Onset Reaction(s) Facility (1 source) No Known Medication Allergies; Translations: [No Known Medication Allergies] Propensity to adverse reactions (disorder) [facility] Repository Medications Current Medications Medication Drug Class(es) Dates Sig (Normalized) Sig (Original) omeprazole 40 mg delayed release oral capsule (1 source) Proton Pump Inhibitor Start: 03-03-2024 take 1 capsule by mouth once daily omeprazole 40 mg Cap-DR 40 mg = 1 cap(s), Oral, Daily, Refills(s) 0 Start Date: 03/03/24 Status: Ordered ondansetron 4 mg disintegrating oral tablet (1 source) Serotonin-3 Receptor Antagonist Start: 03-03-2024 ondansetron 4 mg Dis Tab Refills(s) 0 Start Date: 03/03/24 Status: Ordered traZODone hydrochloride 50 mg oral tablet (1 source) Serotonin Reuptake Inhibitor Start: 03-03-2024 take 1 tablet by mouth once daily at bedtime as needed traZODONE 50 mg Tab 50 mg = 1 tab(s), Oral, Once a day (at bedtime), PRN Insomnia, Refills(s) 0 Start Date: 03/03/24 Status: Ordered Problems Problem Classification Problem Date Documented Date Episodic/Chronic Biliary tract disease (3 sources) Cholelithiasis without obstruction; Translations: [Calculus of gallbladder without cholecystitis without obstruction] Onset: 03-01-2024 Episodic Mood disorders (1 source) Bipolar disorder 03-03-2024 Chronic Other nutritional; endocrine; and metabolic disorders (1 source) Body mass index 30+ - obesity 03-09-2024 Chronic Other nutritional; endocrine; and metabolic disorders (1 source) Obesity caused by energy imbalance 03-09-2024 Chronic Residual codes; unclassified (1 source) Insomnia 03-03-2024 Episodic Results Test Name Value Interpretation Reference Range Facility Ambulatory Visit Summaryon 0 03-09-2024 Ambulatory Visit Summary Ambulatory Visit Summary LIANE MAHONEY :2000 Visit Date:03/09/2024 Ambulatory Visit Instructions Your Diagnosis Symptomatic cholelithiasis Your Care Team Attending Physician - DANIELA MARTINEZ, Bryant Gallegos Primary Care Physician - NONE, XXXX This Is Your Medications List Contact prescribing physician if questions or concerns omeprazole (omeprazole 40 mg Cap-DR) ondansetron (ondansetron 4 mg Dis Tab) trazodone (traZODONE 50 mg Tab) Procedures Performed Closed fracture of elbow. Discharge Vitals Heart Rate (Peripheral) 72 Respiratory Rate 16 Blood Pressure 114/72 Height 175 cm Height 69 in Weight 107 kg Weight 235.4 lb BMI 34.94 Medications What How Much When Instructions Unchanged omeprazole (omeprazole 40 mg Cap-DR) 1 Capsules By Mouth Every day Contact prescribing physician if questions or concerns Unchanged ondansetron (ondansetron 4 mg Dis Tab) Contact prescribing physician if questions or concerns Unchanged trazodone (traZODONE 50 mg Tab) 1 Tablets By Mouth Once a day (at bedtime) as needed for Insomnia Contact prescribing physician if questions or concerns Allergies No Known Allergies No Known Medication Allergies Problems Ongoing - Any problem that you are currently receiving treatment for. Acute cholecystitis Bipolar disorder BMI 34.0-34.9,adult Insomnia Obesity due to excess calories Symptomatic cholelithiasis Patient Survey You may receive a survey via text or e-mail asking about your office visit. Please share your experience with us by completing your survey. We appreciate your feedback and thank you for choosing us for your care. [facility] General Surgery Office/Clini c Noteon 03-09-2024 General Surgery Office/Clinic Note General Surgery Office/Clinic Note Chief Complaint hospital follow up HPI Staff 24 year old male presents to re-evaluate abdominal pain and nausea. Patient admitted to [facility] 03/01 and discharged 03/02. Surgical consult completed 03/01. Taking Omeprazole as prescribed. Denies change in symptoms. History of Present Illness 24 yo male recently admitted to [facility] for severe episode of biliary colic; symptoms resolved, discharged to home on low fat diet; patient reports intermittent mild symptoms with eating, no severe pain; occasional nausea, no emesis; no fevers; had normal labs; abd ct and RUQ US with single stone in lower gallbladder, no inflammation or complete obstruction; no previous abd operations; no h/o jaundice or pancreatitis; no asa or NSAID use; vapes nicotine-containing products. Review of Systems PHQ Score Initial Depression Screen Score: 0 SCORE ROS - Provider Constitutional: no fever, no sweats, no weight loss. Eyes: no glasses, no blurred vision, no visual loss. ENMT: no dentures, no hoarseness, no swallowing difficulties, no hearing loss, no ear infection(s), no nose bleeds. Cardiovascular: normal blood pressure, no chest pain, regular heartbeat, no heart murmur. Respiratory: no shortness of breath, no cough, no asthma, no wheezing. Gastrointestinal: no nausea, no vomiting, no diarrhea, no constipation, no blood in stool, no change in bowel habits, no abdominal pain, no hepatitis. Genitourinary: no kidney stones, no urine infection, no dysuria. Musculoskeletal: no pain, no weakness. Skin: no changing moles, no rash, no skin lumps. Neurologic: no seizures, no epilepsy, no headache. Psychiatric: no emotional or psychiatric problem. Heme/Lymph: no bleeding problems, no anemia, no blood clots, no transfusions. Allergy/Immunologic: no swollen lymph nodes/glands, no IV drug abuse. Other: Additional ROS info: Except as noted in the above Review of Systems and in the History of Present Illness, all other systems have been reviewed and are negative or noncontributory. Physical Exam Vitals & Measurements HR: 72(Peripheral) RR: 16 BP: 114/72 HT: 69 in HT: 175 cm WT: 107 kg WT: 235.4 lb BMI: 34.94 HEENT: normal conjunctiva, sclera clear, no scleral icterus, EOM intact, PERRLA, oral mucosa moist without lesions. Neck: trachea midline, no mass, symmetric, no thyromegaly or nodules, no adenopathy Respiratory: lungs CTA, respirations non labored. Cardiovascular: regular rate and rhythm, no murmur, no pedal edema or varicosities. Gastrointestinal: obese, soft, non distended, mild tenderness, RUQ, to deep palpation no masses, no palpable hernias, diastasis recti no, no hepatosplenomegaly; normal bs Lymphatic: no cervical adenopathy, no supraclavicular adenopathy. Musculoskeletal: normal gait, digits and nails without infection, nodes, cyanosis, clubbing. Skin: no rashes, no lesions, no ulcers, no subcutaneous nodules, induration. Psychiatric/Neuro: oriented to time, place, person, judgement normal, affect appropriate for age, insight intact, no focal deficits. Tests: labs reviewed, x-rays reviewed, review of old records completed , Discussed surgical options, risks, and possible complications with patient. Assessment/Plan 1. Symptomatic cholelithiasis (K80.20: Calculus of gallbladder without cholecystitis without obstruction) plan LS cholecystectomy with possible IOC, possible open procedure; informed consent obtained. Unasyn 3 gms IV prior to OR SCDs Follow-up No qualifying data available Problem List/Past Medical History Ongoing Acute cholecystitis Bipolar disorder BMI 34.0-34.9,adult Insomnia Obesity due to excess calories Symptomatic cholelithiasis Historical No qualifying data Procedure/Surgical History Closed fracture of elbow. Medications omeprazole 40 mg Cap-DR, 40 mg= 1 cap(s), Oral, Daily ondansetron 4 mg Dis Tab traZODONE 50 mg Tab, 50 mg= 1 tab(s), Oral, Once a day (at bedtime), PRN Allergies No Known Allergies No Known Medication Allergies Social History Alcohol - Denies Alcohol Use, 03/09/2024 Substance Abuse Current, Marijuana, Daily, 03/09/2024 Tobacco Former smoker, quit more than 30 days ago Tobacco Use:. Current vaping or e-cigarette use Smokeless Tobacco Use:. Cigarettes, Vaping, 0.3 per day. Started age 16.0 Years. Yes, 03/09/2024 Family History Family history is negative Normal [facility] Comment on above: Result Comment: Elec tronically Signed By: DANIELA MARTINEZ, Bryant Min\Date and Time Signed: 03/09/24 16:36 EDT ED Note-Nursingon 12-27-2020 ED Note-Nursing Pt called and informed of negative Hep B and negative HIV results. Normal [facility] HBsAg Screen LCon 12-27-2020 HBsAg Screen LC Negative Invalid Interpretation Code Negative [facility] Comment on above: Result Comment: Perf ormed At: [address] [id number] Yue Cevallos PhD Ph:[phone] Performed By: #### 3 [id number] #### [facility] (DEFAULT) [address] [place] [address] HCV Antibody LCon 12-27-2020 Hep C Virus Ab LC 0.1 S/CO RATIO Invalid Interpretation Code 0.0-0.9 [facility] Comment on above: Result Comment: Nega tive: < 0.8 Indeterminate: 0.8 - 0.9 Positive: > 0.9 The CDC recommends that a positive HCV antibody result be followed up with a HCV Nucleic Acid Amplification test (896189). Performed At: [address] [id number] Yue Cevallos PhD Ph:[phone] Performed By: #### [id number] #### [facility] (DEFAULT) [address] [place] [address]607 HIV 4th Gen Screen w Reflex LCon 12-27-2020 HIV Scr 4th Gen LC Non-Reactive Invalid Interpretation Code Non Reactive [facility] Comment on above: Result Comment: Perf ormed At: [address] [id number] Yue Cevallos PhD Ph:[phone] Performed By: #### 3 [id number] #### [facility] (DEFAULT) [address] [place] [address]30 Hep B Core Ab, Tot LCon Hep B Core Ab, Tot LC Negative Invalid Interpretation Code Negative [facility] Comment on above: Result Comment: Perf ormed At: [address] [id number] Yue Cevallos PhD Ph:[phone] Performed By: #### [id number] #### [facility] (DEFAULT) [address] [place] [address] Coding Summaryon 12-26-2020 Coding Summary HTMLBase 64 VphbmnzhKTa1gMx+PGhlY WQ+BN1NWBDoV68zrEIpbV 7OU8mRGI4LJFYGDTFZYR7 MHH3myHS8BPbhL3EojrQn CigswWRfSM16WZy1HOH9s GmpKDthgS8vjZKaX0w2Ue JfWM28kD88PRkuRCSnPgW 3LjZpbjsgbWFy O7ptBxUojBLkDxu+PHRhY mxlIHdpZHRoPScxMDAlJy WshYfiPD6sAe3rAIWzXWQ vbGxhcHNlOiBj a0qpFZEkNGtgRF3cjPtpJ 7UopKX8WKUeb6o6Df52iG I+EYJaENF0dKutZOwdk40 8KsLvx5qoNOC4 xWZfXVcjBST7Q28ng2U4B ZVpVFOlQLO2xDD5jQ0jgL xdeomcI0XknZByKcI9TNS 5mSRrfR6fqJpx brgzpK4aLsr+F39EPA8QQ FCXPK7ATgc4Q8VwCubjvR I+TZ20YDXiLP41lXHmdIL sy8cprXu8FpRc JJUyMRS7gSidSLvks1PuD FSjG60giINzh3K1BXZxaI vrvMZlQfIsxEB9eY4oPZw cjaivq1qgpvpu Qnjlo8cwpf65nT79V58xJ JieAOCmTRK5IBZdCLZypV dexa9srT4cSh4+PUbnm8p pa9bvgUl4UtMf CVEsjuBlqHdcKRU2r6VaU v49F0WroJydw6DwCbd9bk 12lATog6Q4qYU6RBzdVXI jjH6uUXezFaF8 GWGpYcPxdM49aWFxUYezR m6ubTisjOetVZ0jZQMxvk mwSVCkbQ6xNUMnnKWtxDx cEU2yQSAymusj b645MgZoRVB6WGGlbVYjD 0IqmQ1uUyYdMAOhCTDmW6 UeeVHcMVuzV779PHltYtV 4UJSgbgLqN7Sa ZAZvmBmmAlM1q7V2Jl0Fd 2DdsiksINR7RWaxSNC5Mu YiQhFxDxA1J6PdMpo1SRW ifRznTW8hN1Wx HCRssolpzdujmLX4HRBeY NYksU60hMHrBMxmGn2bb7 W9r258LXDkUZUosQ22Xe1 udDogMTBwdCBU nE2zeudcy2zoyvliEjCgB VRvOJr3JQw3KUOmcVptMg LhPVO9SiF5IEH6uIAseI1 qmRqvdbxvdD6l Oyc+Q15sxM6iGAL2OQO7k wcrYSXsvwXyIS53LV15N3 RyPjwvdGFibGU+PGRpdiB rkRapRM4yDoNj f5xkd0KcBJyuY2RhZYYvY OexSmb1ZLTaFNR5zZT9nD 0eHGWpUFqjl1H8qNR0I6U ewwGnke1ow7wz JHGpFHhcE52hrADng8U7F AVldZR8EVXonXhsCfZkyE 93Oyc+WJVtjEqpr5AtEgu er3zzr8owwZq1 WjUgMKEdkdSlgRxzIRY8c 1KsKm33K92jPBtrYPThLO AxBUHvBGXpiTywxu9bdG5 wIi8+PGNvbCB3 iVH8rU9lBFTfJcE4AMduX 621IdNdtBUjFackf4peu8 khaAe6FxDdCEViixLcnXp iNBY0x6XtFi49 C01pRMbgUWEbWRDeFNJpR HGnrOmbpq3ozX5bOp2+PC 9jb0qska58nJ72hRR+PHR vKSB0gJrdNIsr OIIilL5dZPepYyG0GMLvW lCzeZ89lTMxMQqvEh7bwM omfGcdNI5uMPCizkdzm88 8HaOws7zhUDYg kGKmFRlsLTJ5N41xa5V9J NDgPZTnVXB7wIV8bX3vhM lnbjogbGVmdDsgdmVydGl rFXkfGNuaG202 IHRvcDsnPlBhdGllbnQgT oUiGZp9P0QjIno8BPOibQ qhRG9jrXVtHVanBg7sfMk qrYcePS3wCMHe bdctk740GpWbb9eyQPKwc ZKyXReaMLI8M83oc1O0DA KrNUZxJGW4uSR9jB0djTm nbjogbGVmdDsg qzMpxUwxLCzzUVulY987C HRvcDsnPkJpcnRoIERhdG G8TD74IT77bPBlw5A7mND 8T1HtSKAnptub ntryhYL2DXMmSMQwsH66F e0owQfnCd4cPKAkKBA7RL LpaINqA9MvyA8lSoKvKDV mFFKaA6WaeTKr YCrnJ440QTkhVaV4CAFsf fAoF5GhDWBdnRofSeU3l2 I0Cs4BR6M1AU71HW25pSD sq8J9rFA2W2Qe WWQzajdbctcsbDD1GKFnL EJwwZ63Jp0cfQkaRi1iUD MmGMQ5NDAioQIaR6GbtX2 yOiAjMDAwMDAw M2GhmPRjLGamS812HSpcF mM5LKDjzmDwG6ZqASBseH etGeZ4a7Y2Gt0QGJy2RC0 3YF21lPZze4P3 mUL2U8RhHIDzkrxjpgctg OH6HQJkZSUosP80Gc1swV euAo2sNNRiZHA8NAUkwRL gG5FgcY8kVqCt HOSbFMFsE4OisESzGVbqC 549KXqeZqA1CKAdvtDwC6 EeFHTyiFllBmL7n6T6Il3 AAJAaBA80FCT0 wFK0LX88YA74N6DtVlnrb GFibGU+PHRhYmxlIHdpZH RoPScxMDAlJyBzdHlsZT0 hAt1xSRZdARWl pHvrqNMaLgWuq9iaWPZlY XfuFT8yzMubM7AztSD0DD Lex4e9Zx16Q04dI1VpdYH +DAOchFK0vHA3 iK1rUkEoQeK5DQxcU169N kNhwKPnPljfq2wch1vagY a0BaN2ZTInoyTbgWspNFQ 2x7FcLa35U48s IHdpZHRoPSIxNSUiIHZhb Oonov9rrH3jMk0+PGNvbC B3pUI4aJ6rFuFzPsO6PVr rF793LlYxhEJr Iypyx9vfz9ljvMs2CrAlW AXngdKclQmzJFA0e3GuQa 28O5XcdGavn0FeFya5ek9 0mUMqu1Z2oYM9 V3UvRZCwlfwewBNqhQocY U9iDSPsidwgRVCrsS2iSC VpY7s8WaGeFrB0RCdzZ6R veaU4XJXgrYHj CIeyOCK0A46hs6Q1DVCqD FDxRLX1zJY2hR8swDucff ogbGVmdDsgdmVydGljYWw tRMkeY282VNIj yYwqGFNelX6mXXOgvNHxk AxhTN2kAHNlhxyfIrCEKM pBTkRSTywgRUxJSkFIPC9 8HF18bVAhl7K0 mJQ9D2ErFYPcwvrcjhroa YS7STUlXYNpyM89iAWiWX prEj2pa1T1f665TATzMCT ukJ02At9cxBzw TUZntGQOgM8rlhhca2gna sttGeRdKVBvOUm9ITv9AE SifUveOkUcIPR1XtA9RKF 1hFUohF8scGpn bxpdnD8qUmc+MDYvMzAvM Ot3GZclnIV+DRAqPLU4eD ciONlnIQTqjU5pLKZwP3x 4PkKdZjT7QCif Y0LzNWRobsglMa66fM8oW sHsEcB3YAjnW1QmuqI6OF DjbZHvQEeaINC8H47cu1P 5ZIPsOSTjNBQ6 eUS4oW3wbQwqvyrjbEKgw DsgdmVydGljYWwtYWxpZ2 46IHRvcDsnPjIyIFllYXJ vPY89VR49cLVd v2R1vVS9V7GeGTEzqpxzn toscTK9TNIjLFBxuA81xA QqBYcjWz3ld9N7x507RNY aPQKmpC43Sm2h yGzlHYEviFNZuY3bcxiem 2hyuehqShJtDHQtVTc6RC q0RZZcgKkcWuUhKKJ7PrS 1JZL7eIKvbM8f lGhedpvzvE9jSmn+TUFMR TwvdGQ+IVJdEZH8zRxhCT jjYVOnoX7xLLBiI2z9UqY lFaW1ISycL4Qr CWBtegrvHk45aM4xKdZoJ wY7VFiuT6ZjocL2CDLcaE NjLUihRXE2C13bx9A4CNS rGQEzCBX1fNR2 gP4ajKixdjxpnMDemXluu cNmdEojDVgcWDyxL839QP FisEbiXq1GWQ84EY67S9X yPjwvdGFibGU+ PHRhYmxlIHdpZHRoPScxM QMnEzDeaKfmGB1qZc0iTU EpVRJisNtplJLmJfQzl4w vKIUqNFbzVI4n hQuaT6BbaTP6KICud8a6G v25P44yB2LvmCN+PGNvbC W3fJE8tK7gDeCuFlM3FNr kN869SiAmsNMt Aahhv6jbt1ywkZl6RzFpW ERcliGfxCeeRTV6s6JiGs 94K43tAJwrTHJhRBWjMIX qJLOndEhscu5b uB4dFh5+ONHqkSB0vRY5r U9uQwNqGoF4IVchU630Gs PoaNOpLqtaX09qW0CyhKM +MINmMpa9ALGu fJtdLP3ljTXjOGfvJb7pH QB4IjSiDjVeUTsjW6OoKE FgxjkgiffrlCY5DIQbIWK ocG43Lq9hfAsw Qo0wEKAuRRN4WPXgyIZoE 2YgsU2nFfOeYFGqAIIpD0 ZktCHrLYofF855XNuaKwM 8NYUxzzSkW0Sn FQLhbNpfEeX4b1S0Sl4Qw SismDQuPI6aDoGoHSf7Q3 OnBlv4KMVgrDbzFG7kdAH kAOplJa5llOuk rOosDH2hJANgnaxwb874M tNdf1ehHTIiuQBpODmoHU L8V04mx7W4FGJxNOAxICV 3zIW6jF1reLvv bjogbGVmdDsgdmVydGljY ZraKXwyP704DIJdqMvnUe CCJln1S6VzVjj5VXNrxBp oPM4kkDAbSIdc Eu1jeDmnkSlaWJ1lDUZcw fpdi694QeIvq2pbDSDulB VoILxnFOU5K70xm7A0UJY nLIMkCAQ8eIB1 eB5nmRdclypflXRhgNohl bBwoOupHRoiEFkoE270WQ AdwAetMs3PBth4T4MzFwc 6EREugFjhAI4m zCDpJAymNl1zrNqqsMjjI E9jHXGrgbjec271EeVwp1 gmIAVbzHClCFneOSU4F92 ng8U9LFGlBZGl PPI0aQX9wW1mfKmpzesdo GVmdDsgdmVydGljYWwtYW dhC426QCInmSkuJtVpcOA yOjwvdGQ+PC90 zn45R5ZeMnedIbv2RCYxW GP2eAP9rG4lORTlEKzry6 K2iMX9W7BgzwPwor9dt7v tUYCdGOmiH10s bGF (more content not included)... [facility] Coding Summary HTMLBase 64 EvgkqkvaEOk0vQj+PGhlY WQ+PU2SVXAaE01saUVpgE 2NF0lJUB7ZNWDGBPVZAN9 TKG0dzHR9YKrlA2XlyqEl FxlwfPTvTP80RAh7UEB9d NzuCPgfpD0ctQOyV6u3Ch GrGC02pI49GPfcEAFtAiB 3LjZpbjsgbWFy D2vmRxQuuJUfLrn+PHRhY mxlIHdpZHRoPScxMDAlJy WiqJmjZP8kRy7iHQLjWOR vbGxhcHNlOiBj o0ybZTIyVEwxNI5jjSkpK 6TarLM3EOMzf6y0Ud89qG I+RSYyIBF9kPfhRKqfp23 9VeZkh4hcXGM1 wWKnLCyaLOM8D68ix3U3V QThNRWzBRN7wAL9kS0mpQ jzryffX3RydXWnMtK2GCQ 6sGIbsP1laAxf ptuluV5bJqw+J81PGK6YV EKSTD7VYes1K3KxZnclkV I+MA78MCThIH57fUMdrMA kk5oaeEl7DgQz YJJvQJR8zByhUVwkb1RhY JLjM45nlTImw3E5QHDlfM bciBAzTxMfoQE0mB1oNHg ocwjpj7pfcnmk Wyusp8tzcb45oB75E96xP AihWUDzOAY0LPBxPPGkuU figl1gbC9sXp9+TDotn9f qp6bufWa5YcOx DPUiorScnVabRNR0i4GxJ n84K6UrtYqxz4AeZpj5dz 10mVBcg4C2jUP9GIffNYP qbI8fHHrqNxR8 LNDvTmZvcH32vBJfKZnzC y1vaWmawTgrRD3tPYOjwk yfRUEkoY2cLKOscXZwiWv tSH1nZAZuizkr w695VuVaIOB3HWVzmGKmB 3PqjY4zRdGjDXVrDBSkD8 YzcJAjNZavP061BEobVmY 7NZCsxgQbA8Pw JJNpvMddXrR0k6H8Eg0Hn 5TgjirrYKW4XCejVAP4Gm TnScQnRqL1H4OkVae3CWR puWosNX4eS7Bz LDJxccutmsgmxJY1TGEwB AVudM87zXLyYNdnWr1pa4 O8g049WHVgBIFexW25Po2 udDogMTBwdCBU hT7tfnvcz2batemyXkEmG FNnAPv3FMg7PPWujHumYb OzSCC0YcP9NMF1wRBydT5 pbZsqfwlehY3j Oyc+L44vvM2lIXA7VEE3m optICApepFgDD44RQ82Q8 RyPjwvdGFibGU+PGRpdiB bxDusAY1mUpQf d2hjt0GtKMwbA2FaEOPoG RxpXdb3PVPhESO2eBR7zH 7qCXBzXUazn3F1wKK8U4Z qzoBdba4ak6ep VYBvNOrxB38gnHLvo8K7A WNtaZZ8KEFprLakWbEhpK 93Oyc+HVIxuPfda2VyGrb ea0nka3rbsXs0 BsWeWTHiwcTdjQqcNPH8c 7SyQv00E00cGEftMBVpKC BfDOLmSDUfxIpgsc9diA3 wIi8+PGNvbCB3 pNJ9mG6xFSNiUbC4OLusH 557UkNggQEpCufcf6hts7 gruDn0UrJyOMXeoyWokQz nORK9i1DdJs07 W14vKLzgGLScSPLxNIBtI UNzcJmhrw5laI6rWl2+PC 9vo4gqln47oV94fVE+PHR aAAV1wBweDBzz ZTQnjI7pVNwzUhA1RUIkC gRmtQ03kQUqBUmaBb6kxF tfqUugEN4tDKHbeckni71 5GcCnf8cgVVCh wSQgFWziPDD7U31kl8G9F FRyIBJzMCX8wLO2zM9xpO lnbjogbGVmdDsgdmVydGl lIGhwOMegI561 IHRvcDsnPlBhdGllbnQgT lKkVNp4Q5MhHde4IOBlxN ecQU8ecJAqXJtcPx4mlHu tnUimHL6aQYTz hkboe884QvZwm5doDMItn AYpXQrdMOG0L61po5N9XH CvVFAeQFX5aPC7gY3auHn nbjogbGVmdDsg upBxqVeeWHdpXBpfW185Y HRvcDsnPkJpcnRoIERhdG U1LO57VV74lCByq4W6jVT 1I2WfRXMdlmpr agledAW4JSZvWTFdiP17F l1vpFmcUf7uTLSbFJG1HQ SwgZGmB3OfwH4qGjYeZKO nMZCvH1WpeKNj LTqnC892ZLlrQbO4DXEkn eBuY7RiSROveTegEzK2c7 H5Cl3EV4F1NC00AD45gNJ sw6C4kPH7O1En TIQpqunlvslufWO8TFUuT YDtgF45Gw8gmIzaGg8jMF OsUTG4BDUwfIEfZ0XcbX1 yOiAjMDAwMDAw B7IvsVAdGKjuC630URigI oE7BVCabvOiN7FcCNYefN hhMgK0v6D1We4DKDp8UX5 2TE59oLLxb7S7 pQU5J8RkADAvjcdhvbkak QE8ARGeHFUioN33Wb5vjT mbRq5nCJHbWWX2PJSndOT sK2EgqR3wDtWx AYVpSENoM3ObqQUhIJhlB 559BYvdSeG3SUEnjmHkP5 YxESTqoUexIgT9d3P2Dt9 ZSLMiWL17GNT6 uFB0BX69TA15T2FtVhsib GFibGU+PHRhYmxlIHdpZH RoPScxMDAlJyBzdHlsZT0 rKm3tZYGqGPJo uZzlfSPbOtJuh0pnPOPmI FtkQI8uiNlbF6EuhHQ2XV Rxf8s6Rk25I02nW7OdnMT +DZRycFZ1uOL0 qT7qYqXxApT0LHxdS999V mIplVWjEkfba1dyu0ccgT o1BnV4JJUledAdsHjaVWE 9v9IgFk05H42b IHdpZHRoPSIxNSUiIHZhb Vfnfq2jcT5tEi6+PGNvbC H6dYE6yK3eIjFwOxV3DUv kS082FcElqXYo Gqkmk5hvc1ufnHh7XrGuX FHrchIteVfqJRR9t1AqNu 91O4NshVjmk4JrJkw7eo2 4bKXtk7C5nQI6 J8KbIZUuqcwohCLgoHvfL R5fVGEyoshzSQJqmT5vNB IpQ1t3RtCcQfE7JHjdW8N xloW0ERFglUFk BHzkZYT1C33zx8C0UKQoG FRgFGJ4xMQ4aN0uoBhlvb ogbGVmdDsgdmVydGljYWw lTJcbV834XUSy nHbzHMQmmS4lRBBeaXPvj OkkFD3qCZRqwqfkDqMJNZ pBTkRSTywgRUxJSkFIPC9 9SK80cWAow9M1 hMQ1B1OfPCJoekwbnncvb NT7JDApUFDcpD29gLTlDO agPy3lp8F3q814ZRPlYVN ajA20Pa2feRul LOCquEENzM1fubyre8wrj kmmCdDcZJXqHGr9VCi0EG TijCluXkPeRYD0RqJ0ZAA 7pGVobO6slKhq eerceN9yQio+MDYvMzAvM Xw4BJpqhLA+MXRdFOR0aR lbVOkzLRKeyL4tZCUmS2f 5KgQzSlS4MEvg F5XnYPUkfrqvYk49gX8uK cAuUxY2IBpmV5DbseD3AN CngUCaENkuQIX5L44sb2X 1YLIyVZEuPEP8 xYR2eZ4qjJonxrvncSQin DsgdmVydGljYWwtYWxpZ2 46IHRvcDsnPjIyIFllYXJ rYV31NZ41tZOb i8U9mBG7D8PfCHPptcjuj svyzGJ9XQSuQLShnX82qM HcGUmhAj2jy4Y6v325VDZ aEFXogP86Nu6u bCinLLAvlZBKgO0ypupyk 1qzwgybKxSkWBWbCDd9DR u1ZAXtrBcoTvFiVYP8SlW 2LGC8vGMjsB8j bKyggzmopC1gMsi+TUFMR TwvdGQ+GYWtKNN9tOopUS vnORVjeL3gTKCtC9c5QfA nVlH1XWcdX9Ii OZNaryirQn62yR5aBwYlI vD7QIhuM4GixwN6SJUolC KvXAegWNB1S14ct2N5PBW tXKLtPLO0yVU8 eI4weHschrvmiRXedNqed sUfnItpAQsfYEkiZ322GA IdgJjhBzIvBCPlPG0axWa vdGQ+XU95cf60 D9GoZcmlGnn4LIFkZAE9d AI9yJ9gMVOyYCqqd2P3dD F0W3SbjjVliz8ge2bnYEH sGEaqB54aiUCw x8C4GOFxeFY9SANkaOdbD qGvjP29Jhc+PGNvbGdyb3 NfWymgs7dbj6qwxWx0PrG wJSIgdmFsaWdu NZP6o9LcGd31K13fDSrvJ HRoPSIzMCUiIHZhbGlnbj 1qgN5uVi5+SORhyNV5uMQ 8oU8iKcCvXjR8 CTpyL973WmQtpRAdFcnqw 8hsa6sdsYi7UbRkCXCinu DviFdhBBB6c2GcTa03M3K xxTrdf6LfJlq4 hq39mIFph0P1jPN1Y0EzV EQpielpsKNjuRboTS3aAN FkuwykUQBggT9jSCTrN8x 3FfArXdF8PSxp B9DgpoZ1TWLwqKPlIYMhq FGOuS1ribxid9dwfrzrQc EjRKYcXCm7QQt5PRSwoSs mByPuKAO3CwP3 UPS8fLOfiD9myWsrgywxb G9wOyc+NQy2g9gppOHsEE 6itGV8HZ34CG15fOYdr6I 3lES6G0FzLEJn iolywbolkFD3LKOuUAKnj I10Zw9pvXlsHl6aMTItSO B0RUOwkVBtT2ApkY8sImR vXJLmMZCnS9Rq tOJyYImqC748NUdtHjG8G AUoydAkG4YgWEPmuNxpJs E0y1V2Na5KPY18JV95IU6 0qQVkt7D5eSR5 Q4WxQMJqdltvrqllfDA7W NJbIEFxrC87Ou0jrQzsFp 1pRSAuPQN5QPRfhNGxQ4C aiZ1mJqHcMELe XDFrJ6PsrYGrDSmjY062D QbuWiX4IASkheHyP7FxMY YroQvsLyB5i7I6Ge8CLx0 7PY40UA07xIBu i9J8fSE6T7YuJWZitvsfy pvsiYE7BRPfKDEmpJ28Ag 8haIngMy6nNVUlAGW0NVF onXKvS6PsyJ3r BfUdTHNzAVAhQ4GriCWqJ XokQ794SCcjHeQ3THKlcy RuQ0IwHRIxiDjyXwD4q4W 1Hv0KDGlomug7 T1LoVibynAQ+JS48XTNuF E71mGQowEGvg3ujoSp9Gp QlKMTsFIP2lPusWSbly9X cQHLlE87fyFMy c2U (more content not included)... [facility] Discharge Instructionson Discharge Instructions [id number] [facility] ED Clinical Summaryon [address] [facility] - Emergency Department [address] [place] [address] ED Clinical Summary PERSON INFORMATION Name: LIANE MAHONEY Age: 20 Years Sex: MALE : 2000 MRN: Acct#: Visit Reason: Hand puncture wound, minor; Hand puncture wound; NEEDLE STICK LT HAND POINTER FINGER Arrival: 12/24/2020 11:02:49 Discharge: 12/24/2020 11:42:00 LOS: 000 00:40 Check In: 12/24/2020 11:02:49 Checkout:12/24/2020 11:42:00 Address: [address] [place] [address] PCP: Gina Swanson CNP PROVIDER INFORMATION Provider Role Assigned Unassigned Loc Caal MD ED Provider 12/24/2020 11:04:19 Scott RNRosey ED Nurse 12/24/2020 11:16:39 VITALS INFORMATION Vital Sign Triage Latest Temperature Tympanic Temperature Temporal Artery Pulse Rate 77 bpm 77 bpm O2 Sat 99 % 99 % Respiratory Rate 18 br/min 18 br/min Blood Pressure /99 mmHg /99 mmHg MEDICAL INFORMATION Medications Given: Allergy Information: No known allergies PHYSICIAN DOCUMENTATION Patient: LIANE MAHONEY Age: 20 years Sex: MALE : 2000 Associated Diagnoses: Needlestick injury due to hypodermic needle Author: Loc Caal MD Basic Information Time seen: Date & time 12/24/2020 11:14:00. 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 Patient reports the needles stuck in his left index finger just lateral to the fingernail drawing blood. Patient reports he has no clue who the user of the needle was. He was sent to the emergency room for testing by his employer. He denies any other injuries at the present time. Review of Systems Constitutional symptoms: No fever, no chills. Skin symptoms: Puncture wound left index finger. Additional review of systems information: All other systems reviewed and otherwise negative. Past Medical/ Family/ Social History Social history: Social & Psychosocial Habits Alcohol 12/24/2020 Alcohol Use: Current Frequency: 1-2 times per year Substance Abuse 12/24/2020 Substance use: Never Tobacco 12/24/2020 Smoking tobacco use: Former smoker, quit more Electronic Cigarette/Vaping 12/24/2020 Electronic Cigarette Use: Use, within last 90 days Type: Nicotine infused . Problem list: No qualifying data available . Physical Examination Vital Signs Vital Signs 12/24/2020 11:05 EDT Temperature Oral 36.7 DegC Peripheral Pulse Rate 77 bpm Respiratory Rate 18 br/min Systolic Blood Pressure 133 mmHg Diastolic Blood Pressure 99 mmHg HI SpO2 99 % Oxygen Therapy Room air . Per nurse's notes. General: Alert, no acute distress. Skin: Warm, dry, pink. Head: Normocephalic, atraumatic. Neck: Trachea midline. Eye: Normal conjunctiva. Ears, nose, mouth and throat: Oral mucosa moist. Cardiovascular: Normal peripheral perfusion. Respiratory: Respirations are non-labored. Back: Normal alignment. Musculoskeletal: Normal ROM. Neurological: Alert and oriented to person, place, time, and situation, normal motor observed, normal speech observed. Psychiatric: Cooperative, appropriate mood & affect. Medical Decision Making Differential Diagnosis: Puncture wound. Rationale: Patient has no other known exposures. Hepatitis B surface antigen and HIV testing ordered. Patient counseled that he should follow-up with his primary care physician for repeat testing, he reports he does not have a primary care physician.. Impression and Plan Diagnosis Needlestick injury due to hypodermic needle ([id number], Discharge, Medical) Plan Condition: Stable. Disposition: Discharged: to home. Patient was given the following educational materials: Needlestick and Sharps Injury, Ilip-pw-Kkxg, Needlestick and Sharps Injury, Cnoa-cy-Dpiz. Follow up with: None Provider Within 3 to 5 days. Counseled: Patient, Regarding diagnosis, Regarding treatment plan, Patient indicated understanding of instructions. DISCHARGE INFORMATION: Discharge Disposition: Home Discharge Location: Home PATIENT EDUCATION INFORMATION Instructions: Needlestick and Sharps Injury, Vyxp-yy-Wevx Follow-Up: With: Address: When: None Provider [address] [place] [address] Within 3 to 5 days DIAGNOSIS: Needlestick injury due to hypodermic needle Patient Understands: Yes - Patient/family/caregi faiza verbalizes understanding of instructions given Comment: [facility] ED Note - Physicianon 2020 ED Note - Physician Patient: LIANE MAHONEY Age: 20 years Sex: MALE : 2000 Associated Diagnoses: Needlestick injury due to hypodermic needle Author: Loc Caal MD Basic Information Time seen: Date & time 12/24/2020 11:14:00. 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 Patient reports the needles stuck in his left index finger just lateral to the fingernail drawing blood. Patient reports he has no clue who the user of the needle was. He was sent to the emergency room for testing by his employer. He denies any other injuries at the present time. Review of Systems Constitutional symptoms: No fever, no chills. Skin symptoms: Puncture wound left index finger. Additional review of systems information: All other systems reviewed and otherwise negative. Past Medical/ Family/ Social History Social history: Social & Psychosocial Habits Alcohol 12/24/2020 Alcohol Use: Current Frequency: 1-2 times per year Substance Abuse 12/24/2020 Substance use: Never Tobacco 12/24/2020 Smoking tobacco use: Former smoker, quit more Electronic Cigarette/Vaping 12/24/2020 Electronic Cigarette Use: Use, within last 90 days Type: Nicotine infused . Problem list: No qualifying data available . Physical Examination Vital Signs Vital Signs 12/24/2020 11:05 EDT Temperature Oral 36.7 DegC Peripheral Pulse Rate 77 bpm Respiratory Rate 18 br/min Systolic Blood Pressure 133 mmHg Diastolic Blood Pressure 99 mmHg HI SpO2 99 % Oxygen Therapy Room air . Per nurse's notes. General: Alert, no acute distress. Skin: Warm, dry, pink. Head: Normocephalic, atraumatic. Neck: Trachea midline. Eye: Normal conjunctiva. Ears, nose, mouth and throat: Oral mucosa moist. Cardiovascular: Normal peripheral perfusion. Respiratory: Respirations are non-labored. Back: Normal alignment. Musculoskeletal: Normal ROM. Neurological: Alert and oriented to person, place, time, and situation, normal motor observed, normal speech observed. Psychiatric: Cooperative, appropriate mood & affect. Medical Decision Making Differential Diagnosis: Puncture wound. Rationale: Patient has no other known exposures. Hepatitis B surface antigen and HIV testing ordered. Patient counseled that he should follow-up with his primary care physician for repeat testing, he reports he does not have a primary care physician.. Impression and Plan Diagnosis Needlestick injury due to hypodermic needle ([id number] W46.0XXA, Discharge, Medical) Plan Condition: Stable. Disposition: Discharged: to home. Patient was given the following educational materials: Needlestick and Sharps Injury, Ikfx-xx-Wkxg, Needlestick and Sharps Injury, Qyui-sn-Sfbz. Follow up with: None Provider Within 3 to 5 days. Counseled: Patient, Regarding diagnosis, Regarding treatment plan, Patient indicated understanding of instructions. [Electronically Signed on: 12/24/2020 11:25 EDT] Loc Caal MD [Verified on: 12/24/2020 11:25 EDT] Loc Caal MD [facility] ED Note-Nursingon 12-24-2020 ED Note-Nursing Patient arrives to the ED via private vehicle. Ambulated with a steady gait to ED room 5. Alert and oriented X4. C/O needle stick injury to left pointer finger. 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 Patient reports that he did not clean the injury after the needle stick injury. States he put a cleaning rag with cleaning products on the area. Patient reports the needle stick did draw blood. Patient brought needle with him in baggie. [facility] ED Patient Summaryon [address] [facility] - Emergency Department [address] [place] [address] PATIENT DISCHARGE INSTRUCTIONS Patient Information Name: LIANE MAHONEY Age: 20 Years Date of : 2000 Reason For Visit: Hand puncture wound, minor; Hand puncture wound; NEEDLE STICK LT HAND POINTER FINGER Arrival Time: 12/24/2020 11:02:49 Primary Care Physician: Gina Swanson CNP Attending Physician: Loc Caal MD Comment: Visit Diagnosis: Diagnoses This Visit Hand puncture wound ([id number]) Hand puncture wound, minor ([id number]) Needlestick injury due to hypodermic needle (W46.0XXA) Prescription Information: If you have been given a prescription for narcotics, seek immediate medical attention if you have any difficulty breathing or any sudden status changes such as confusion and sleepiness. If you or anyone you know is experiencing suicidal thoughts, mental health, alcohol and/or drug addiction problems; contact the Mental Health & Recovery Board [facility] 17/02 Crisis Hotline -Text 4HSAF nm 790451. If you received any narcotics, sedation, or any other medication that causes drowsiness for the next 24 hours, unless otherwise directed: ? Do not drive a car. ? Do not operate machinery such as power tools, lawn mowers, drills, sewing machines, or stoves ? Avoid alcoholic beverages and drugs for allergies, nerves, or sleep ? Do not make important personal or business decisions or sign any legal documents With: Address: When: None Provider [address] [place] [address] Within 3 to 5 days Medication Information: The exam and treatment you received today in the [facility] Emergency Department were for an urgent problem and are not intended as complete care. It is important for you to follow up with a doctor, nurse practitioner, or physician?s executive assistant to president for ongoing care. If your symptoms become worse or you do not improve as expected and you are unable to reach your usual health care provider, you should return to the Emergency Department, we are available 24 hours a day. For those patients who have received Radiology results, the interpretation of your X-ray as given to you by our Emergency Department physician is only a preliminary report. The Radiologist will review your films and if there is a change in the diagnosis you will be notified by phone. Please make sure you have provided a working phone number so we can reach you if necessary. In the event that you had a lab culture while you were a patient in the Emergency Department, you will be notified by phone if there is a need to change your antibiotic. Please make sure you have provided a working phone number so we can reach you if necessary. [facility] Emergency Department has provided you with a complete list of medications post discharge. Please inform your home health care provider/provider of your visit and for further instruction on these medications. Any specific questions regarding your chronic medications and dosages should be discussed with your primary care physician(s) and/or pharmacist. Visit Information Allergies: Substance Reaction Symptoms Type Comments No known allergies Drug Vital Signs: Vitals and Measurements this Visit (last charted value for your 12/24/2020 visit) Vital Signs This Visit Temperature Oral: 36.7 DegC Peripheral Pulse Rate: 77 bpm Respiratory Rate: 18 br/min Systolic Blood Pressure: 133 mmHg Diastolic Blood Pressure: 99 mmHg SpO2: 99 % Oxygen Therapy: Room air Measurements This Visit Height/Length Dosin.260 cm Height/Length Estimated: 175.260 cm Weight Dosin.590 kg Weight Estimated: 106.590 kg Problems List: Problem Onset Comments No Problems found Patient Education Needlestick and Sharps Injury Monitor for signs of infection, return to the emergency room for any worsening symptoms. Follow-up with primary care physician to review results. A needlestick injury happens when a person gets poked (stuck) by a needle or sharp tool (sharps) that may have someone else's blood on it. A needlestick injury can happen to a health care worker, or to anyone who is exposed to needles. The injury may expose you to blood that carries infections such as: ? Hepatitis B. ? Hepatitis C. ? Human immunodeficiency virus (HIV). If you have a needle stick injury or think you may have been exposed to blood or body fluids: ? Wash the injured area right away with soap and water. ? Place a bandage or clean towel on the wound and apply gentle pressure to stop the bleeding. Do not squeeze or rub the area. ? Notify a work place compressed yeast supervisor or doctor. Follow any procedures in your work place. ? Tell your doctor if you are or . Treatments may include: ? Blood tests to make sure that you have no infection. ? Niecy (more content not included)... Normal [facility] Vital Signs Date Time Vital Sign Value Performing Clinician Cheryl kowalski 03-09-2024 14:36-0400 Blood Pressure Location Bryant SUAREZ [place] 03-09-2024 14:36-0400 Diastolic blood pressure 72 mm[Hg] Bryant SUAREZ [place] 03-09-2024 14:36-0400 Heart rate 72 /min Bryant SUAREZ [place] 03-09-2024 14:36-0400 Respiratory rate 16 /min Bryant SUAREZ [place] 03-09-2024 14:36-0400 Systolic blood pressure 114 mm[Hg] Bryant SUAREZ [place] Encounters Encounter Date Encounter Type Care Provider Facility Start: 03-09-2024 End: 03-09-2024 ambulatory Bryant SUAREZ Facility:[facility] Start: 03-09-2024 End: 03-09-2024 Patient encounter procedure Bryant SUAREZ [place] Start: 03-04-2024 ambulatory Bryant SUAREZ Facility:[facility] Start: 03-03-2024 ambulatory Bryant SUAREZ Facility:[facility] Start: 03-01-2024 End: 03-01-2024 ambulatory Bryant SUAREZ Facility::[id number] Start: 09-24-2022 ambulatory [place] [facility] Procedures Date Procedure Procedure Detail Performing Clinician Elbow fracture - closed (disorder) Bryant SUAREZ Payers Date Payer Category Payer Private Health Insurance [id number] 2000 Unknown [id number] 2000 Unknown [id number] Social History Date Type Detail Facility Start: 03-09-2024 Tobacco smoking status Ex-smoker (fi nding) [place] Sex Assigned At Male [facility] Functional Status Date Assessment Result Facility 03-09-2024 Functional Status N/A [facility] Clinical Note 12-24-2020 Note Date & Type Note Facility 12-24-2020 Note Education Materials Infectious Disease Needlestick and Sharps Injury Monitor for signs of infection, return to the emergency room for any worsening symptoms. Follow-up with primary care physician to review results. A needlestick injury happens when a person gets poked (stuck) by a needle or sharp tool (sharps) that may have someone else's blood on it. A needlestick injury can happen to a health care worker, or to anyone who is exposed to needles. The injury may expose you to blood that carries infections such as: ? Hepatitis B. ? Hepatitis C. ? Human immunodeficiency virus (HIV). If you have a needle stick injury or think you may have been exposed to blood or body fluids: ? Wash the injured area right away with soap and water. ? Place a bandage or clean towel on the wound and apply gentle pressure to stop the bleeding. Do not squeeze or rub the area. ? Notify a work place compressed yeast supervisor or doctor. Follow any procedures in your work place. ? Tell your doctor if you are or . Treatments may include: ? Blood tests to make sure that you have no infection. ? Tetanus shot. ? Hepatitis B shot. ? Medicines to stop or treat infection. ? Treatment for the wound. Follow these instructions at home: Wound care ? There are many ways to close and cover a wound. For example, a wound can be covered with sutures, skin glue, or adhesive strips. Follow instructions from your doctor about: ? How to take care of your wound. ? When and how you should change your bandage (dressing). ? Keep the bandage dry as told by your doctor. ? Do not take baths, swim, use a hot tub, or do anything that would put your wound underwater until your doctor approves. ? Check your wound every day for signs of infection. Check for: ? Redness, swelling, or pain. ? Fluid or blood. ? Pus or a bad smell. ? Warmth. General instructions ? Take hjck-fjd-jxtngug and prescription medicines only as told by your doctor. ? If you were prescribed an antibiotic medicine, take it as told by your doctor. Do not stop using the antibiotic even if you start to feel better. ? Keep all follow-up visits as told by your doctor. This is important. Contact a doctor if: ? The poked area is red, swollen, or painful. ? You have a fever. ? You feel worried (anxious), mad, or sad (depressed). ? You have trouble sleeping. ? Your skin or the whites of your eyes look yellow (jaundice). ? You have belly pain or a feeling of fullness. ? You have tiredness (fatigue). ? You feel sickness in a lot of your body (malaise). ? You get infections often. Summary ? A needlestick injury happens when a person gets poked (stuck) by a needle that may have someone else's blood on it. ? It is treated by cleaning the injured area right away with soap and water. You may get tetanus and hepatitis B shots. You may also get medicines for infections. ? Take medicine and care for your wound as told by your doctor. This information is not intended to replace advice given to you by your health care provider. Make sure you discuss any questions you have with your health care provider. Document Revised: 11/05/2019 Document Reviewed: 08/26/2018 [employer] Patient Education ? 2019 [employer] [facility] Evaluation + Plan note Note Date & Type Note Facility Evaluation + Plan note No data available for this section [facility] Discharge instructions Note Date & Type Note Facility Hospital Discharge instructions No data available for this section [place] Progress note Note Date & Type Note Facility Progress note No data available for this section [place] Summary Purpose Family History No Family History Records FoundNo Family History Records Found No data available for this section No Family History Records Found Advance Directives No Advanced Directives Records FoundNo Advanced Directives Records FoundNo Advanced Directives Records Found Additional Source Comments (unrecognized sect ion and content) No Status Records FoundNo Status Records FoundNo Status Records Found INFORMATION SOURCE (unrecogn ized section and content) DATE CREATED AUTHOR 12/27/2020 [facility] DATE CREATED AUTHOR AUTHOR'S ORGANIZ ATION 09/26/2022 [place] DATE CREATED AUTHOR AUTHOR'S ORGANIZ ATION 03/13/2024 [facility] FOR RECORDS PERTAINING TO PATIENTS WHO ARE OR HAVE BEEN ENROLLED IN A CHEMICAL DEPENDENCY/SUBSTANCEABUSE PROGRAM, SOME INFORMATION MAY BE OMITTED. This clinical summary was aggregated from multiple sources. Caution should be exercised in using it in the provision of clinical care. This summary normalizes information from multiple sources, and as a consequence, information in this document may materially change the coding, format and clinical context of patient data. In addition, data may be omitted in some cases. CLINICAL DECISIONS SHOULD BE BASED ON THE PRIMARY CLINICAL RECORDS. [employer] provides no warranty or guarantee of the accuracy or completeness of information in this document.
--- NOTE | 2024-03-15 11:24 | XR_ITS ---
[address] [address] Patient Name: LIANE MAHONEY MRN: [id number] date: 2000 Sex: M Assigned Patient Location: [facility] Current Patient Location: [facility] Accession/Order Number: [id number] Exam Date: 03/15/2024 11:35 Report Date: 03/15/2024 12:06 At the request of: ENRIQUE SUAREZ Procedure: XR chest 2V EXAM: XR chest 2V HISTORY: Preop exam COMPARISON: 06/13/2016 TECHNIQUE: Upright PA and lateral chest x-ray FINDINGS: The heart is not enlarged and the vasculature is not distended. No acute infiltrate, effusion or pneumothorax is identified. The osseous structures are grossly intact. XR/XR chest 2V IMPRESSION: No acute infiltrate or evidence of cardiac decompensation. The overall appearance of the chest is essentially unchanged. Electronically authenticated by: AMAN HARDY Date: 03/15/2024 12:06
== END 2024-03-15 10:59 | disposition home or self-care (01) ==
LOC: PST 11:01
PROVIDERS: Visit Provider Surgery
DX: Z01.810 Encounter for preprocedural cardiovascular examination (principal); K80.20 Calculus of gallbladder without cholecystitis without obstruction
CPT/HCPCS: 71046

== ENCOUNTER 2024-03-24 09:35 | Day surgery (SDC) | payer OTHER, SELFPAY ==
[2024-03-15 11:33] VITALS: BP 119/78; PULSE 72; TEMP 36.3; O2SAT 98; BMI 34.5
[2024-03-24] VITALS (13 sets, daily range): BP systolic 137–170; BP diastolic 70–113; PULSE 67–94; TEMP 36.3; O2SAT 89–98; BMI 34.6
--- NOTE | 2024-03-24 | OP_ITS ---
OPERATION DATE: 03/24/2024 PREOPERATIVE DIAGNOSIS: Symptomatic cholelithiasis. POSTOPERATIVE DIAGNOSIS: Symptomatic cholelithiasis with chronic cholecystitis. PROCEDURE: Laparoscopic cholecystectomy. SURGEON: Bryant Luu M.D. ANESTHESIA: General endotracheal. ESTIMATED BLOOD LOSS: Less than 20 mL. INDICATIONS AND CONSENT: Patient is a 24-year-old male with worsening symptoms of biliary colic. Workup revealed a large stone within the gallbladder, in the neck. Indications, risks, benefits, alternatives of proceeding with laparoscopic cholecystectomy were explained extensively to the patient, including risks of bleeding, infection, bile duct injury, bowel injury, need for intraoperative cholangiogram, postoperative ERCP, open procedure, blood clot, pulmonary embolus, heart attack, anesthetic complications or need for further surgery. All of his questions were answered. Informed consent was obtained. PROCEDURE: Patient was brought to the operating room, placed in the supine position. General anesthesia was induced. Patient was prepped and draped in the usual sterile fashion. A supraumbilical incision was made with the scalpel blade and carried down through subcutaneous tissue using blunt dissection. The fascia was grasped and incised. Two 0 Vicryl stay sutures placed in either side of the midline fascia. The Worrell trocar was then inserted and secured using the stay sutures. The abdomen was then insufflated with carbon dioxide to a pressure of 15 mm/Hg. The scope was then inserted and the upper abdomen was visualized. Three 5 mm ports were then placed; one in the subxiphoid area and two in the right subcostal area, all under direct visualization. The patient was placed in reverse Trendelenburg with the right side up. The gallbladder was grasped at the fundus with an atraumatic grasper, retracted cephalad and to the patient?s right. The infundibulum was grasped and retracted laterally and inferiorly. There was noted to be an omental adhesion to the abdominal wall that was taken down prior to this, using sharp dissection as well as electrocautery. Dissection was begun just below the infundibulum, where the cystic duct and cystic artery were carefully dissected out. There was noted to be a posterior branch, several posterior branches as well as arteries. The critical view of safety was obtained. The cystic duct was noted to be of normal caliber. It was clipped with two Hem-O-Raulito clips proximally, one distally. The artery was clipped with two Hem-O-Raulito clips proximally and one regular clip distally. These were then divided. The posterior branches were controlled with clips and divided as well. The gallbladder was then taken down from the liver bed using electrocautery. There were noted to be chronic inflammatory changes noted. Once the gallbladder was completely removed, it was brought out in an Endocatch bag through the umbilical port site. The upper abdomen was then copiously irrigated until clear. The liver bed was inspected and noted to be hemostatic. No evidence of bile leak. All port sites were examined upon withdrawal of the ports. There was noted to be good hemostasis. The umbilical port site fascia was closed with a 0 Vicryl figure of eight suture. All port sites were infiltrated with 0.5% Marcaine. The skin was then closed with interrupted 4-0 subcuticular Monocryl sutures and skin glue. Sterile pressure dressing was applied to the incisions and Medipore tape. Patient tolerated procedure well, was extubated and sent to recovery room in good condition. CC: Patient?s family physician ARIES
--- OUTSIDE RECORDS SUMMARY | 2024-03-24 09:57 | XMS_ITS | CCD ---
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 Ottoniel [facility] General Surgery Office/Clini c Noteon 03-09-2024 General Surgery Office/Clinic Note General Surgery Office/Clinic Note Chief Complaint hospital follow up HPI Staff 24 year old male presents to re-evaluate abdominal pain and nausea. Patient admitted to [facility] 03/01 and discharged 03/02. Surgical consult completed 03/01. Taking Omeprazole as prescribed. Denies change in symptoms. History of Present Illness 24 yo male recently admitted to [facility] for severe episode of biliary colic; symptoms [...] Family History Family history is negative Normal [facility] Comment on above: Result Comment: Elec tronically Signed By: DANIELA MARTINEZ, Bryant Min\Date and Time Signed: 03/09/24 16:36 EDT ED Note-Nursingon 12-27-2020 ED Note-Nursing Pt called and informed of negative Hep B and negative HIV results. Normal [facility] HBsAg Screen LCon 12-27-2020 HBsAg Screen LC Negative Invalid Interpretation Code Negative [facility] Comment on above: Result Comment: Perf ormed At: [address] [id number] Yue Cevallos PhD Ph:[phone] Performed By: #### 3 [id number] #### [facility] (DEFAULT) [address] [place] [address] 14191 HCV Antibody LCon 12-27-2020 Hep C Virus Ab LC 0.1 S/CO RATIO Invalid Interpretation Code 0.0-0.9 [facility] Comment on above: Result Comment: Nega tive: < 0.8 Indeterminate: 0.8 - 0.9 Positive: > 0.9 The CDC recommends that a positive HCV antibody result be followed up with a HCV Nucleic Acid Amplification test (506395). Performed At: [address] [id number] Yue Cevallos PhD Ph:[phone] Performed By: #### 3 [id number] #### [facility] (DEFAULT) [address] [place] [address] 38085 HIV 4th Gen Screen w Reflex LCon 12-27-2020 HIV Scr 4th Gen LC Non-Reactive Invalid Interpretation Code Non Reactive [facility] Comment on above: Result Comment: Perf ormed At: [address] [id number] Yue Cevallos PhD Ph:[phone] Performed By: #### 3 [id number] #### [facility] (DEFAULT) [address] [place] [address] 39045 Hep B Core Ab, Tot LCon Hep B Core Ab, Tot LC Negative Invalid Interpretation Code Negative [facility] Comment on above: Result Comment: Perf ormed At: [address] [id number] Yue Cevallos PhD Ph:[phone] Performed By: #### 3 [id number] #### [facility] (DEFAULT) [address] [place] [address]321 Coding Summaryon 12-26-2020 Coding Summary HTMLBase 64 DhithdhfBAi8mBc+PGhlY WQ+YR1DTMFhJ91hmWSdnX 7WA2iOZV7KMHGNLPSXUA5 MHX0wsRM1RBowY7RasuCc FfvebLToAJ68MYu4XGB2o VryOWnnyM2ljSPeG8b8Je IqEF07kK97SXqxXURtNyM 3LjZpbjsgbWFy M1dqDuHukQGoUwl+PHRhY mxlIHdpZHRoPScxMDAlJy KyaDokHW3qPx9wKYOxHIL vbGxhcHNlOiBj z3jcRRJuBWjyJV3beOqrV 8CswNU1SCDru5f0Zm74lJ I+YQFgMZE2gPgeJAxbe28 1VxFyo7jrLZX1 zBWcOPjyXVM8C61vz4I9J OMuIJAeXGC7cWQ2kO7faR dmzqarO8RklMJtRbU4DQP 4lGElhR0vrFxy tfthpI9cMrl+C11HDT6HZ SWYKW5HBwq4G7UyDenvzC I+UB07CIDuXC64vEQtyLF fn1vfhAw4PvDe SPEcVGZ9wBiwYVcmz0UrP RMpF48tmFXfv2X7MNKegR twtWFlJzSiiUE3qQ4jWFt wisnbf8kwdbvw Kqtav9umgs58cA38J58fK KjxREBeUWL0XHUzACNngS lxaw0abD3mOi0+ILdgt9m ac7yurMv3PaBt FNRpktGbzIrqCUF7f5EfW f20K4QulJufd3NpIia4jd 44kYZuh7Z4wIQ1MOpwMKJ fpM7dSRimFcN0 YLHyMhNwwE70wYDxKDvnI b0haAyqtWyhBR5cQBQqpe hkEZOnjP7wMJKefMOvjBk rAW2kQXWzogmq u929FxOoBJB9ZGRusHOoN 2IdfI9xWeWjLTViZBGtL4 QmfMQuELvmQ415QKalXiM 1BSSgatXpP7Pz NASrhPnbGsR3b7I3Lh0Ot 6EiwszrLUL0AFivJEO9Wf XaVpYmGtB7L1BjFzl4XOZ yrNgkWN4hP2Vu BJVpfrqjzunymCG2NAToQ OVckA08gCFnUGiwJj4ka8 N1n774JKInFINbnU72Kd5 udDogMTBwdCBU nZ6dypaph8uvbfihIuRtM CXaCAt0ERi7AKFysCnwVk NuWSG6ToT1PCU5iIVbzO9 mkKpuvomxlR7a Oyc+F34emT7rUJM1IVU1q esuUHKeadCeWE04ZR44N6 RyPjwvdGFibGU+PGRpdiB wdAyxVB1hYwMa x4toh5HzOYjkI5TvQQTkO TdrBao1YSUoKYT6kFX3kW 4uZNJbBBryw3L6zFA2S4Z xzaJswg3ro0yu GXMgTGbhL84goSMfy1W4O BNflKK4LUIgbEuwCtTknQ 93Oyc+DZOvuCpux0UiXtj kn5eig9dbuJy4 TkXtKPKuouPukBrdTBM9n 2HaGj13V38lGMnpUSTfQW XpPGNmDVEbiHqfpd5rgT3 wIi8+PGNvbCB3 gLZ1yC0fQQCbUqU3XNisI 555DmAapIAbTpmqq6upd7 xboUb2OnOtTKPrvnNvbJp lLQH9y8YrGp94 C37bCEsyIZWrYQNcEHIiI YQwsQztzt9yxZ8nMz6+PC 8dh8mjgc04pM17dXX+PHR vGPE4nIwlBAbb FARhwG9eOSrlLuF1WLPmT dMkoJ41qOVkMRftRo8mbM jadUraMN3mUPEjynmde01 0IzHzp2ynFXUz fZSxJTulNPX1T02dl5F3R DHcCHLmPGH0jUT5mS6afS lnbjogbGVmdDsgdmVydGl wGCvrHLslG029 IHRvcDsnPlBhdGllbnQgT nTgTEg3Z6JqObc4XEMwwW mjNE0hwRQrSTjeXl3xvHw cpNqpGN3aQITm sacdq287KlZkv2jgQAHtg NQjFDssDBI4E37gm1L4YG MpBBOzKMH8cJI8rU6odYo nbjogbGVmdDsg ptWafJztFTwvJUxcY210M HRvcDsnPkJpcnRoIERhdG J5XW92CA91yYDip0Q7hRU 8S1RpPQHbjtss hjgmzTT8MREuWHUsxG18M m9xyLwwGl6fQJJoSIK8KT EriTExZ5UjvN1kWnCgHLG oUYKhQ7JtjQQi BQxxJ589IKaeZsW8KMRaq oXaW9FlPAXueFuxQoS0c3 I3Fd2DJ5H9XD33MG56ySG qn8B9nDY3B4Yp EBGlgmlmdkhyiIC1CWDwQ NJqnM63Vl8odKfkUy3lCE LfOEZ4UUZgdIUuN7DadD5 yOiAjMDAwMDAw V9FaqYOtWOerU356YHhxZ bV9PILoqsKuK3CqKBUqiB leMcH2a3H1Rq1OJGb5MT8 2CK14oHIoi5B7 mNB6J7PoTKIcfxijwkxjp OD2SRFsGGElaG40Tx7qfK uaIh9zMKBcZCB2OERrpWW bE4BghS5qIfCl IGXpKEYbZ7NvvEZlKFpyO 680DCkoPvY4HSGrlcGcA1 AnSBCnsPjoPpA7o4I7Pg4 KDYJlRV33JBQ8 vDP2YI32RR18Y9FwZqjkm GFibGU+PHRhYmxlIHdpZH RoPScxMDAlJyBzdHlsZT0 yKy4gJOFhPTHp vEsvnLLvGyXfk0syVTHfI DsnVV9geVvtG9HezGR7MT Dbr2f0Fd77D67pR3MjdHN +FBKyyJZ0xCN5 aE9qRfApVbS5SSrqD672Y jSkrLRwRdowv4sak5clnI k1SsI8ZHUnauLhvLvbTDL 9e9LqBe00D73f IHdpZHRoPSIxNSUiIHZhb Yuguu2ldA0fDd5+PGNvbC T8dYR8iN7gKlGjVsQ1XNz zJ796RqBzgQVq Jeiqc8ydu0rtiDh9QzHsL IMcixUwdQndMIC1i3XyUn 98E6DniOsqh2DeEir8kh6 4nIFlk5Y4uIN6 G0NfIXIuusltwZScjErkR N2pZFBsfvglWWNbyF9cMA HnS5t2BzYuXnY3HWxtI5D znuI8BEVbgCHz HBqyZRF8B06du0Z0TDYmG JQmOSO8cOG3dS7ilBjvra ogbGVmdDsgdmVydGljYWw uWKskM344UESm lZlsEICfrY6tMPZsyMEkn MonWC4oUMRrvtoeJwNRGC pBTkRSTywgRUxJSkFIPC9 5KV86nUOty9W7 hQI9A6KzEAHivylhthjlt YO1WMTyOAEceZ38kCBuGU weYk2nd1D6c221PHEgLWT lbJ42Cm5rjXhi TJJbjVWHtD5kntpnj0ome jyfKbDvSXSoFNv4GAt3QU MgbQfdOrAiZIJ7XdK7YUY 5iQEknO5qyGfy zqmolB9wNlr+MDYvMzAvM Sk4MZjlaDQ+MBLeCCT3iY zaBWxxXQLkkE6yWPNqY2s 3CgHgSiX8GZqy E9TbRMEuuqkyMu88cH1dB qBsYhE7GUbmJ3XegbR8QU QwkCCkGGmcBNO4R10rg6E 0GDUtMHXcUIK4 dRC2pB9qoCacyrtqkQTfo DsgdmVydGljYWwtYWxpZ2 46IHRvcDsnPjIyIFllYXJ oQD50ON33eURs e9W7lIL4H4JmDSEjrmmbr ugerCQ9OPWdEJCcnO39dA KcMUmoFl5oh9N8q765VVC fAZGihU97Zq0v xCouGUMgtLWEuY8eywcho 8ghetkxYfFoENHiUOu4ZF w9ECXwdIeiNcRbESA8BwR 2WAD3mZAaxU8x fNxmlqayrW0qWxp+TUFMR TwvdGQ+SVQxQTD8hPktPY ktBPMusC0hPHXnJ0v8DaA cNoE7SOfcU6Yf HMBifaakGk55uY5bIlWwH qC5QYauY4OjhoO8UCRbzD GiKGadHFG0M43oo1A0CIM bATVgMRJ4pPS3 mR8jlFczkfjonIIjuJdig fTayVdcCYzgPXriQ505NH AttNmbEe5PXL60WF46A7E yPjwvdGFibGU+ PHRhYmxlIHdpZHRoPScxM ZZuQfGhaEukFK2fPj8jTA CqWBQctMiuoMArQcUbv6j fLKRzGQpbHQ0f gWvbX5HwoQK7XERle1m0M v07C67hM3FafVX+PGNvbC E8jKB0nN4rVeXhXsZ5OOx iM915QsLtlANi Hdpox0tyt3obhAw0ZwSuL EIrjyTzsVlkDLK2i6HrNg 46M05lFZhkYYOeUMYrWYE mHXVnyIbslo9x zE8aGc7+OBYsqAW1tZV9x Y1aDdXzNsP7NQojG123Ub UkzEQxHbfzD73uO3LtxET +PTWlDpn3SGKv wGerDY1kkDNhFSsaOb5aT LD0ToTjMiMjQPagQ1RdTP SxywnxowlhrLZ1ASOqIOR htH34Da1vhGxx As9dOHUzMBZ3NDOgkHXjZ 6FuxX7rIlWlIUEcXQHcR5 ReaOBiYKshR394MNnbOqZ 8USHoxyHjF7Jf NMSijMrsPrC7o8R5So3Ou VmuvJDzWJ3sVlAbXFq7C8 SpUqv2QOLozRzyAI0wdRO dJXpaUe4wxGgq wYakOZ5lVWAhfiruf239A mEav9xgLYMieDYyPXuwXS E0X13yl9B6BKBlGWTzKWM 4hKR6eU2opJno bjogbGVmdDsgdmVydGljY EmhPChwV301LFAjhQdkVl BNQii5M0KlKlj8OPRowNb bXX1vnQWjLJsu Uo6peYyacZhnXD8mKAUtk rkji797QvTch4wwRUGonF GjRZbtXAG9Q45ka1A3WBP pUTSeJIP9qNA5 uE0fzIbfjkdgpYAxnUxvw vLxhXtzMMlnVNebK179WO JcnYzwTy3PYln2W9JgNos 2VNUmxYpiYE4s dZNyUWqmEh1aiAvysMceQ N1bRLKacokml721OyIcn9 laJUSobKNtLHiwPGI9Z41 gz4L4AIWdHSAu HIT2iRT0kC1ecCnonswtj GVmdDsgdmVydGljYWwtYW deS603SOQkrFcrXiZjwNN yOjwvdGQ+PC90 od13Z8RzXbrmEtf3OTFkI MM2oHO8fE5qPQLdFMzcb8 W2eLT7L1PjilMwqm5pr7m qUVIzHHizU09d bGF (more content not included)... [facility] Coding Summary HTMLBase 64 CghpisnzEXu8yMg+PGhlY WQ+IC6GZOKjS20ezFZjqC 0RD5wQDO7LDHRJGUFSXD9 WZI6sqJC1FFxuK9MuazNz CcvseYTwMU05GLd4YRR4x PktDXmbjJ9adAPcQ0d2Uc IwCR44wH40ZVmyOGPiKkY 3LjZpbjsgbWFy J7vbEgIwlKWdEfh+PHRhY mxlIHdpZHRoPScxMDAlJy WzkSzjSO5xHs2pPITaABG vbGxhcHNlOiBj b4rnHQZcXWgaER1lbFntL 7JjxQW0JYZda7j2Ov78gT I+GDNcSSL6kJtrCSfgp63 2FsQnq7mfCIB4 eNLpHRskAXD8M79ki9N1P TZuRGYcKNA5nOI6oY4eeU quyqmwX6UqdQTzZnF8SDP 4dRQxnQ6kyLxy jpbvkR5qFqw+D01GGY0OQ FIGLZ9HBws3Y2UoDenbbC I+PH96NMNgNF62hHCcvWK rg5gsxOi8FhZv NGCuFSE3hRppLDeux2MpJ STcZ00xpIGjg4E6NKRuqE tynWMsTkTcxTY5qM6eGFb cipzyn6rsqxav Xxplb9hljo88iF75T84jG OymCVZdXTD7KIPjDIQcvO vkua2xqT2lXz8+XFjkx4b dt0wubAh3LtGb KVQzaiBrrCxuHLL0l3ScT h74B1BavPubo4NkQht3ef 41aMLvz9V2wVW2WNcbUFH yrK9iPWsuAgP0 UIWsWkBdnT46sPQhVWriT s9pgWoitSpvAS1vGBXybv wbTJMzpX1aEABywHKsrVb vJW2yHQHzdbkg f960SdGjAAR7OYDloMOiB 6TplE9oHjJoVFCcNTDvF6 ZnuPPbLIpaS356JAxkInZ 2ELApbhHrA6Io NULiwFibGvB4y3D1Wc6Pt 1JfonvmFWU2FFcwNRW0Dy RfCvBpBkO1P0WiLsa5NFJ ysIplVB2wD3Qn RMRdkgajknbbzTT7PQXuX EVkgR11nUQyZWacLp2zf9 G7h531MSCaDJXqqN42Yz5 udDogMTBwdCBU nC5bnuywx4toaiwnYhUbV VKjECe6JKm5SGGjrWinQp KcAKF8GtM0JGJ4dZGpcS9 shXhpgjhcaJ4a Oyc+C73vaT3uEJW0RGX3w wcaOPMoxdOrQL00LO76I5 RyPjwvdGFibGU+PGRpdiB guUdwMX8jZgJv t5bgt5SgDBbyV2SpHEKcW GdjXxm4KWBuNYI6gMA0lG 4nQIKfJLnrc2J7lYM6W2Y naeKgnf2lc1kn BDHxULugA55bgOByz3A8O GWheAD8HWVbePdcLoXwfI 93Oyc+UVJcfIobj2HyWzt rn5egl1ohyTz0 GjTfZVZareMfiVpcMCV5e 6BxXw12U62mCOcpFCZeOI NzUVUgADTymSmmhu5exO4 wIi8+PGNvbCB3 pJY5sF1dSBUmZiI7EVhxA 495IdDyuQVcMuyvt4kmh4 injKg3NlXhGJZtyjQjvRg qNRS4n5HiXw06 C53vUTuzMNMaHEVzYNJcB ZUipRnpzd1raI5lKs5+PC 3zk0vkwp22cU87kFY+PHR gDUB5rImjVChk IJLhcX2qHTkoRoJ4SBDfH sNjkV07rZMyQPtaAq5cwI uaoWkyNQ3lXVOcrvkad85 1CyMyx3xnZODa cVTqUMfdTQS9J64hi8T3W EDzWDCsPHM1dMJ7qU0wsL lnbjogbGVmdDsgdmVydGl aGBqnQHhuR208 IHRvcDsnPlBhdGllbnQgT gPbHNt7N3XiZrf7HWQiwI htTG7mbJDsCJerAh0qvRc mbOvnWB0sHERc mbron145XaJnk8vvSAVcf PBhMYgdNRI3A08oh8H0ZZ DcJIFkYSW3kDF1sV9imEe nbjogbGVmdDsg xsEhjKimNOyyFYntM024A HRvcDsnPkJpcnRoIERhdG O6HE64CT80rFPzm2L7fMY 9P6HhYTPnuejz vyuxmKK6AKMcXGZawH65C u9doAirAs2qXANsIGV1JT TseAKjA1NooJ5tSjUsXIN xCOBoJ0NgyUHc QZjfD976DMpiYaW2XDCjs lDpS9IwQXEetHvdGrW6g9 C7Gi0KI1Y7AX28EM06aCQ qb9Q3jXZ4R7Zg JSIlzrduwsmkfMU7HDSzS ODxzE80Mb2tnSdoPx6tFS ZrMIY7EFEtqGNyK6WtvW3 yOiAjMDAwMDAw C5EjyWRxJRtzD653BMzsI bN0CTFbjnOwY7KoOAEmzV ogPbA7x7Y0Xw0ZEKa2FL5 9JR36pMXig5J3 wNF4O5DmCMZynkyyommdu JR2DPVgTQEmqU34Wv0snW htKu0qMWDrBHB1SVZiyDY nE8EtzC6xRoMp VJQqBGSjR2SsgDVoROltH 234IHjlPrA1ZUTngyZaE1 QeMLZazSftXdT7c5R3Yc2 IOXYsBE70YJW0 oAG3FM98PW08E1ByMdzrc GFibGU+PHRhYmxlIHdpZH RoPScxMDAlJyBzdHlsZT0 jLj4oRPZyWKOn nWovtGLaYfFqg5ucRTDdS NyjIR0deOiaL6SofGV9GQ Nae8z1Bw82Y35hU3HanRU +ADMajIJ8cLQ4 tP9iWcWnKpE6VLbkE430R sXfcTKrJmknr6kch6akgL d3HoF7CMYrdsRntJjwDHA 2w3IySm93F90r IHdpZHRoPSIxNSUiIHZhb Dxksj4dmA5wEi6+PGNvbC S8cYH5nJ5jXpKaXnE9BAh wR465DpTlaZOt Lhiwn4zzo4wfkAm2JdTlZ FNnsyWehTiuISU4a0DvEp 16U4HxgHrum2MqCnt0wb2 8hSUuz4A6zKM8 F6OrGNCbiajjdVJahAtzR E7aYIFrynumLIElxI7eLE MyO3v8ZaGpWkA1IQwyD9H lfnO7NDLclISa XLkcEOT5J99kg5A3ENFdW YKfXUQ2hHT5lJ5ahXndhc ogbGVmdDsgdmVydGljYWw fGNlzH539AXAc kAjlUCPcuL5nTZOqxWRte ZxbZO6xWHMxlwnpNuPJOJ pBTkRSTywgRUxJSkFIPC9 2BO87fKGfd8H1 hDQ6Y8IaRWGqoxyvbgebt YN4UIBzMJAhmR44iTFdCV bgFx3kt1Y9u609CYCjIPG akT81Ic7foIqd UPBvgLJWsB7areolj0kix vxgTdWcBXWgYDt2LIn6UX ZieKtbKiLcSUY9ZsH9KEG 0qDImaW5miEzc arbroB0vWly+MDYvMzAvM Ap8JSzouWC+XRDhYJN9tV zzKKcoIXXfgX4dLZIsK0b 6CxKnXcV2HCew K8UsVSFskfmhFy20fP8hX gOiLnZ8ROkjG4QrtjZ6WJ FbiILxTYbfNIA7U80ns0B 0ZKMwPMSgTGA5 gHN0qM1hvUyzlxqugLRss DsgdmVydGljYWwtYWxpZ2 46IHRvcDsnPjIyIFllYXJ bJZ88XY57hECx t2N6wTV8U8DqRVCtpkehs ltcuVZ3ZNGyRFYrvI82qV IaWAhkWp3vo8G0r623QUH bIIAskJ02Db7m aPxnOKTuuTCUjM5baecad 0twfrnaSrXaTTKbVDb4WZ e8MWKgkJntAiFoNDK4FhA 4JZG6eRCbrE0q yBmntxustT7pUmy+TUFMR TwvdGQ+QYItLAP8fOwsPP fkDARznB2qXVWoV4l5JsQ oQuL3SKqbR2Cr HJJgkiuwRf91pQ1yRiWrY nP6WAfyT2HmrbQ5QTAslB WpRHbzRUJ4Y41mx8G3FHK eUZEyNDQ8uHZ1 yS0upZppwgbtsCNrsUijr zFzsQuxKKcnQGcjK760VG BmtQtbPbMoVATeUJ5dhKv vdGQ+CK99xk93 G1WlFyjsPjb8QOIfCRA9w GQ3uA0pALCnCHmmo6S1sM Y6R7DzxsCeql6ge7myXTW dLTstI01neCNr z6Z0ISMeoJY9PEDnvWzvN cHvjC18Byz+PGNvbGdyb3 KlXkbwb7hfj5tntJa3NmQ wJSIgdmFsaWdu YIA4m4JdJz81I68zMNjiL HRoPSIzMCUiIHZhbGlnbj 6nqF0nEv4+QMPlaMJ3cKV 3dR4kMbDrUfB1 VAmoS368YgGbuNRqIzcxj 2dfu9meqKq9KjJnVYTmhb KnxXvjHVU7h7HpNj86A4B owHxjq7TeXqi8 ce21iXLyi0P9hVR9Q4IoT WUstatbaAWgdZvjZY5lIR NfksdpIFMppF9cUVGeO6r 2AeKvNxQ3YEnj J4NdehI3DKGeoINePWOjo SVWzU6qiqmsw0gyfgxzQc LoVPBhXYl7MLq5RQTtbMl bQrXqHBR2GuP4 HVR9pZBplC7ugVishvyat G9wOyc+FUl3y0kepWOxAM 3mbXS4LZ00JC73uTNkf2N 3kOI0P4UwRIJi zrdopxqqlPM8DBOqNLOum O84Tp6tyVouIu4cWCDcJW W3TMNcfDNxU3EouE0dAmN hSARkHJQiL9Kz wJBzRMxuI891WIhxVnG5G DJaemRqR5ZbMQFogBwnZy A3w6X9La3XEJ62RF91ZI1 2fOUxm7B5eEV6 K6GuQBZicaniyarczYU1E PHjZXNuzY72Sz7jlItmKf 7tKSRnAVO8MGQhzNUwT5J bcE9aTuChMYAp DDIgJ5TqhHFqQXjwZ891S BzkVjM2LZTirdAbX8BiLI JslXorVjF3d0T1Tp9VXl7 6WK11ZW29jZVx i2K3zNZ0L1EcYMPmrpojl iqqjDF2PERvPKZznD33Um 6oxPieQi8zWHBhGFO5XGT ibDQwR2DxkV2d ZnJjAFCtRJIpJ5LfdMUvY WflG710CGyzCvL7XVSqul DeN6YaUUFsvKxtIjP9v1Y 3Oj4DNFtkidl3 J0XrClzpvCW+GN12CPLsR C15qGPanDCga1ehaRg9Kp EhJJIaKPG5sUofOLkbn0Z aEKKrZ87dyHLu c2U (more content not included)... [facility] Discharge Instructionson Discharge Instructions [id number] [facility] ED Clinical Summaryon 2020 ED Clinical Summary [facility] - Emergency Department [address] [place] [address] ED Clinical Summary PERSON INFORMATION Name: LIANE MAHONEY Age: 20 Years Sex: MALE : 2000 MRN: Acct#: Visit Reason: Hand puncture wound, minor; Hand puncture wound; NEEDLE STICK LT HAND POINTER FINGER Arrival: 12/24/2020 11:02:49 Discharge: 12/24/2020 11:42:00 LOS: 000 00:40 Check In: 12/24/2020 11:02:49 Checkout:12/24/2020 11:42:00 Address: [address] [place] [address] PCP: Gina Swanson CNP PROVIDER INFORMATION Provider [...] Diagnosis Needlestick injury due to hypodermic needle (HGR19-RP W46.0XXA, Discharge, Medical) Plan Condition: Stable. Disposition: Discharged: to home. Patient was given the following educational materials: Needlestick and Sharps Injury, Dlnm-vo-Vghm, Needlestick and Sharps Injury, Dhzd-gp-Diof. Follow up with: None Provider Within 3 to 5 days. Counseled: Patient, Regarding diagnosis, Regarding treatment plan, Patient indicated understanding of instructions. DISCHARGE INFORMATION: Discharge Disposition: Home Discharge Location: Home PATIENT EDUCATION INFORMATION Instructions: Needlestick and Sharps Injury, Cjnm-ra-Mfkb Follow-Up: With: Address: When: None Provider [address] [place] [address] Within 3 to 5 days DIAGNOSIS: Needlestick injury due to hypodermic needle Patient Understands: Yes - Patient/family/caregi faiza verbalizes understanding of instructions given Comment: [facility] ED Note - Physicianon 2020 ED Note [...] Diagnosis Needlestick injury due to hypodermic needle (FRL71-DR W46.0XXA, Discharge, Medical) Plan Condition: Stable. Disposition: Discharged: to home. Patient was given the following educational materials: Needlestick and Sharps Injury, Wlkw-qs-Nsaf, Needlestick and Sharps Injury, Cjnk-pt-Orhy. Follow up with: None Provider Within 3 to 5 days. Counseled: Patient, Regarding diagnosis, Regarding treatment plan, Patient indicated understanding of instructions. [Electronically Signed on: 12/24/2020 11:25 EDT] Loc Caal MD [Verified on: 12/24/2020 11:25 EDT] Loc Caal MD [facility] ED Note-Nursingon 12-24-2020 ED Note-Nursing Patient arrives [...] Patient brought needle with him in baggie. [facility] ED Patient Summaryon 021 ED Patient Summary [facility] - Emergency Department [address] [place] [address] PATIENT DISCHARGE INSTRUCTIONS Patient Information Name: LIANE MAHONEY Age: 20 Years Date of : 2000 Reason For Visit: Hand puncture wound, minor; Hand puncture wound; NEEDLE STICK LT HAND POINTER FINGER Arrival Time: 12/24/2020 11:02:49 Primary Care Physician: Gina Swanson CNP Attending Physician: Loc Caal MD Comment: Visit Diagnosis: Diagnoses This Visit Hand puncture wound ([id number]) Hand puncture wound, minor ([id number]) Needlestick injury due to hypodermic needle (W46.0XXA) Prescription Information: If you have been given a prescription for narcotics, seek immediate medical attention if you have any difficulty breathing or any sudden status changes such as confusion and sleepiness. If you or anyone you know is experiencing suicidal thoughts, mental health, alcohol and/or drug addiction problems; contact the [facility] 17/02 Crisis Hotline -Text 4HFNN bt 170188. If you received any narcotics, sedation, or [...] documents With: Address: When: None Provider [address] [place] [address] Within 3 to 5 days Medication Information: The exam and treatment you received today in the [facility] Emergency Department were for an urgent problem and are not intended as complete care. It is important for you to follow up with a doctor, nurse practitioner, or physician?s licensed occupational therapy assistant for ongoing care. If your symptoms become [...] so we can reach you if necessary. [facility] Emergency Department has provided you with a complete list of medications post discharge. Please inform your etymology professor/provider of your visit and for further instruction [...] the area. ? Notify a work place accountant supervisor or doctor. Follow any procedures in your work place. ? Tell your doctor if you are or . Treatments may include: ? Blood tests to make sure that you have no infection. ? Niecy (more content not included)... Normal [facility] Vital Signs Date Time Vital Sign Value Performing Clinician Cheryl kowalski 03-09-2024 14:36-0400 Blood Pressure Location Bryant SUAREZ [facility] 03-09-2024 14:36-0400 Diastolic blood pressure 72 mm[Hg] Bryant SUAREZ [facility] 03-09-2024 14:36-0400 Heart rate 72 /min Bryant SUAREZ [facility] 03-09-2024 14:36-0400 Respiratory rate 16 /min Bryant SUAREZ [facility] 03-09-2024 14:36-0400 Systolic blood pressure 114 mm[Hg] Bryant SAUREZ [facility] Encounters Encounter Date Encounter Type Care Provider Facility Start: 03-09-2024 End: 03-09-2024 ambulatory Bryant SUAREZ Facility:[facility] Start: 03-09-2024 End: 03-09-2024 Patient encounter procedure Bryant SUAREZ [facility] Start: 03-04-2024 ambulatory Bryant SUAREZ Facility:[facility] Start: 03-03-2024 ambulatory Bryant SUAREZ Facility:[facility] Start: 03-01-2024 End: 03-01-2024 ambulatory Bryant SUAREZ Facility::[id number] Start: 09-24-2022 ambulatory [place] [facility] Procedures Date Procedure Procedure Detail Performing Clinician Elbow fracture - closed (disorder) Bryant SUAREZ Payers Date Payer Category Payer Private Health Insurance [id number] 2000 Unknown [id number] 2000 Unknown [id number] Social History Date Type Detail Facility Start: 03-09-2024 Tobacco smoking status Ex-smoker (fi nding) [facility] Sex Assigned At Male [facility] Functional Status Date Assessment Result Facility 03-09-2024 Functional Status N/A [facility] Clinical Note 12-24-2020 Note Date & Type [...] the area. ? Notify a work place accountant supervisor or doctor. Follow any procedures in [...] smell. ? Warmth. General instructions ? Take mpop-sij-vylrayi and prescription medicines only as told by [...] provider. Document Revised: 11/05/2019 Document Reviewed: 08/26/2018 [employer] Patient Education ? 2019 [employer] [facility] Evaluation + Plan note Note Date & Type Note Facility Evaluation + Plan note No data available for this section [facility] Hospital Discharge instructions Note Date & Type Note Facility Hospital Discharge instructions No data available for this section [facility] Progress note Note Date & Type Note Facility Progress note No data available for this section [facility] Summary Purpose Family History No Family History [...] section and content) DATE CREATED AUTHOR 12/27/2020 [facility] DATE CREATED AUTHOR AUTHOR'S ORGANIZ ATION 09/26/2022 [place] DATE CREATED AUTHOR AUTHOR'S ORGANIZ ATION 03/13/2024 [facility] FOR RECORDS PERTAINING TO PATIENTS WHO ARE [...] BE BASED ON THE PRIMARY CLINICAL RECORDS. [employer] provides no warranty or guarantee of the accuracy or completeness of information in this document.
[2024-03-24] MEDS: LACTATED RINGER'S SOLUTION 1,000 ML 50 ML IV ×2 (10:05→14:29)
[2024-03-24] MEDS: AMPICILLIN SODIUM/SULBACTAM NA 3 GM in 0.9 % SODIUM CHLORIDE 100 ML IV (12:57)
[2024-03-24] MEDS: BUPIVACAINE HCL 0.5% PF 50 MG/10 ML VIAL 20 ML INJ (15:11)
[2024-03-24] MEDS: OXYCODONE HCL/ACETAMINOPHEN 5MG/325MG 1 TAB PO (15:59)
[2024-03-24] MEDS: ONDANSETRON PF 4 MG/2 ML VIAL IV (16:35)
--- NOTE | 2024-03-24 16:43 | RESP.RT ---
Done per nursing
--- NOTE | 2024-03-24 17:22 | PC.NURSE ---
1700 Reviewed PEP therapy device use with the patient and had him demonstrate use to ensure understanding.
--- NOTE | 2024-03-24 17:23 | PC.NURSE ---
1545 Attempted to apply O2 several time and patient removed it forcefully each time. Dr. Saab anesthesiologist states to just leave it off at this time. Monitoring closely.
== END 2024-03-24 17:15 | disposition home or self-care (01) ==
PROVIDERS: Visit Provider Surgery
PROC: (CPT 00790; principal; 2024-03-24 11:00)
DX: K80.10 Calculus of gallbladder with chronic cholecystitis without obstruction (principal); F17.290 Nicotine dependence, other tobacco product, uncomplicated; K21.9 Gastro-esophageal reflux disease without esophagitis; F31.9 Bipolar disorder, unspecified; F41.9 Anxiety disorder, unspecified
CPT/HCPCS: 00790; 47562; 88304; 94667; J0131; J0295; J0665; J1100; J1170; J1885; J2250; J2405; J2704; J3010